=== PATIENT | female | born 2005 | race African-American/Black ===

== ENCOUNTER 2024-09-14 22:01 | Inpatient (IN) | payer OTHER, MEDICAID ==
[~2024-09-14] VITALS: Ht 162.6 cm; Wt 62.1 kg
[~2024-09-14 22:01] MED LIST: DIPH25CA39; PRELONE
--- NOTE | 2024-09-14 22:28 | ED.PDOC ---
History of Present Illness HPI Comments 19-year-old female came to ER with mother due to generalized weakness. Per mother, patient was apparently well until yesterday, when she noted the patient to be pale, weak looking, diaphoretic, with episodes of confusion and incoherence. Patient was noted to be saturating at 80s at room air and was tachycardic at 140s. Persistence of symptoms throughout the day, now associated with dizziness, shortness of breath, lethargy, nausea, and left lower chest pains prompted patient to come to the ER. Blood pressure upon arrival was 91/55 mm Hg Chief Complaint: General Weakness Time Seen by MD: 22:27 Primary Care Provider: NONE Reviewed Notes: Nurses Notes Allergies: Coded Allergies: NO KNOWN ALLERGIES (Unverified , 06/09/13) Home Meds Reported Medications Diphenhydramine Hcl (Benadryl) 25 Mg Cap 06/09/13 [Prelone] No Conflict Check 06/09/13 Information Source: Patient, Relative (Mother) Mode of Arrival: Wheelchair Severity: Moderate Timing: Hours Duration: Since onset Prehospital treatment: None Past Medical History PAST MEDICAL HISTORY: Denies Surgical History: Denies all surgeries BLOCK CUTTER History: Denies all BLOCK CUTTER Hx Family History Family History: Reviewed,noncontributory to illness Social History Smoker: Non-Smoker Alcohol: Denies ETOH Use Drugs: Denies Drug Use Lives In: Home Constitutional: reports: diaphoresis, fatigue, malaise, weakness; denies: chills, fever, sweats, others EENTM: denies: blurred vision, double vision, ear bleeding, ear discharge, ear drainage, ear pain, ear ringing, eye pain, eye redness, hearing loss, mouth pain, mouth swelling, nasal discharge, nose bleeding, nose congestion, nose pain, photophobia, tearing, throat pain, throat swelling, voice changes, others Respiratory: reports: SOB at rest, shortness of breath; denies: cough, hemoptysis, orthopnea, SOB with excertion, stridor, wheezing, others Cardiovascular: reports: chest pain, palpitations; denies: dizzy spells, diaphoresis, Dyspnea on exertion, edema, irregular heart beat, left arm pain, lightheadedness, PND, syncope, others Gastrointestinal: reports: nausea; denies: abdomen distended, abdominal pain, blood streaked bowels, constipated, diarrhea, dysphagia, difficulty swallowing, hematemesis, melena, poor appetite, poor fluid intake, rectal bleeding, rectal pain, vomiting, others Genitourinary: denies: abnormal vagina bleeding, burning, dyspareunia, dysuria, flank pain, frequency, hematuria, incontinence, pain, , vagina discharge, urgency, others Neurological: reports: dizziness; denies: fainting, headache, left sided numbness, left sided weakness, numbness, paresthesia, pre-existing deficit, right sided numbness, right sided weakness, seizure, speech problems, tingling, tremors, weakness, others Musculoskeletal: denies: back pain, gout, joint pain, joint swelling, muscle pain, muscle stiffness, neck pain, others Integumetry: denies: bruises, change in color, change in hair/nails, dryness, laceration, lesions, lumps, rash, wounds, others Allergic/Immunocompromised: denies: Difficulty Healing, Frequent Infections, Hives, Itching, others Hematologic/Lymphatic: denies: anemia, blood clots, easy bleeding, easy bruising, swollen glands, others Endocrine: denies: excessive hunger, excessive sweating, excessive thirst, excessive urination, flushing, intolerance to cold, intolerance to heat, unexplained weight gain, unexplained weight loss, others Psychiatric: denies: anxiety, bipolar disorder, depression, hopeless, panic disorder, schizophrenia, sleepless, suicidal, others Physical Exam General Appearance: No Apparent Distress, Normal HEENT: Normal ENT Inspection, Pharynx Normal, TMs Normal Neck: Full Range of Motion, Non-Tender, Normal, Normal Inspection Respiratory: Chest Non-Tender, Lungs Clear, No Accessory Muscle Use, No Respiratory Distress, Normal Breath Sounds Cardiovascular: No Edema, No JVD, No Murmur, No Gallop, Normal Peripheral Pulses, Regular Rate/Rhythm Breast Exam: Deferred Gastrointestinal: No Organomegaly, Non Tender, No Pulsatile Mass, Normal Bowel Sounds, Soft Genitalia: Deferred Pelvic: Deferred Rectal: Deferred Extremities: No calf tenderness, Normal capillary refill, Normal inspection, Normal range of motion, Non-tender, No pedal edema Musculoskeletal : Apperance: Normal Neurologic: Alert, unit [employer] II-XII nml as Tested, No Motor Deficits, Normal Affect, Normal Mood, No Sensory Deficits Cerebellar Function: Normal Reflexes: Normal Skin: Dry, Normal Color, Warm Lymphatic: No Adenopathy Was a procedure done? Was a procedure done?: No Differential Dx Considerations may include: Anemia, electrolyte imbalance, dehydration, pneumonia, sepsis, urinary tract infection X-Ray, Labs, Meds, VS Vital Signs Date Time Temp Pulse Resp B/P (MAP) Pulse Ox O2 Delivery O2 Flow Rate FiO2 09/14/24 22:22 136 09/14/24 22:05 98.8 147 19 91/55 (67) 98 Lab Test 09/14/24 22:27 09/14/24 22:17 09/14/24 22:09 Range/Units White Blood Count 6.1 4.4-10.8 10^3/uL Red Blood Count 4.61 4.0-5.20 10^6/uL Hemoglobin 10.8 L 12.2-16.2 g/dL Hematocrit 34.3 L 36.0-46.0 % Mean Corpuscular Volume 74.3 L 80.0-100.0 fL Mean Corpuscular Hemoglobin 23.5 L 28.0-32.0 pg Mean Corpuscular Hemoglobin Concent 31.6 L 32.0-36.0 g/dL Red Cell Distribution Width 15.4 H 11.8-14.3 % Platelet Count 311 140-450 10^3/uL Mean Platelet Volume 6.8 L 6.9-10.8 fL Neutrophils (%) (Auto) 88.6 H 37.0-80.0 % Lymphocytes (%) (Auto) 4.8 L 10.0-50.0 % Monocytes (%) (Auto) 6.5 0.0-12.0 % Eosinophils (%) (Auto) 0.0 0.0-7.0 % Basophils (%) (Auto) 0.1 0.0-2.0 % Neutrophils # (Auto) 5.4 1.6-8.6 10 ^3/uL Lymphocytes # (Auto) 0.3 L 0.4-5.4 10 ^3/uL Monocytes # (Auto) 0.4 0-1.3 10 ^3/uL Eosinophils # (Auto) 0 0-0.8 10 ^3/uL Basophils # (Auto) 0 0-0.2 10 ^3/uL Nucleated Red Blood Cells 0.0 % D-Dimer, Quantitative 0.66 H 0.0-0.49 mg/L FEU Sodium Level 135 L 136-145 mmol/L Potassium Level 3.9 3.5-5.1 mmol/L Chloride Level 103 98-107 mmol/L Carbon Dioxide Level 21 20-31 mmol/L Anion Gap 11 5-15 Blood Urea Nitrogen 11 9-23 mg/dL Creatinine 0.86 0.550-1.02 mg/dL Glomerular Filtration Rate Calc 99 >90 mL/min BUN/Creatinine Ratio 12.8 10.0-20.0 Serum Glucose 158 H 74-106 mg/dL Calcium Level 9.2 8.7-10.4 mg/dL Total Bilirubin 0.6 0.2-1.0 mg/dL Aspartate Amino Transferase (AST) 11 L 13-40 U/L Alanine Aminotransferase (ALT) 16 7-40 U/L Alkaline Phosphatase 42 L 46-116 U/L Troponin I High Sensitivity 7 </=34 ng/L Total Protein 5.8 5.7-8.2 g/dL Albumin 3.7 3.2-4.8 g/dL Beta HCG, Quantitative 0.4 L 1.5-4.2 mIU/mL Lactic Acid Level 5.5 *H 0.4-2.0 mmol/L POC Glucose 124 H 70-106 mg/dl Current Medications Medications (Trade) Dose Ordered Sig/Yayo Route Start Time Stop Time Status Last Admin Sodium Chloride 1,000 ml @ 1,000 mls/hr Q1H ONCE IV 09/14/24 22:30 09/14/24 23:29 09/14/24 23:11 Ceftriaxone Sodium 50 ml @ 100 mls/hr ONCE ONCE IV 09/14/24 22:30 09/14/24 22:59 DC 09/14/24 23:16 Time of 1ST Reevaluation: 22:23 Reevaluation 1ST: Unchanged Time of 2ND Reevaluation: 23:17 Reevaluation 2ND: Unchanged Patient Education/Counseling: Diagnosis, Treatment Family Education/Counseling: Diagnosis, Treatment Sepsis Sepsis Reasesment Focused Exam Sepsis focused exam: focus exam completed, time: (2314) Departure 1 Departure Time of Disposition: 23:18 Impression: Primary Impression: Pneumonia Disposition: 09 ADMITTED INPATIENT Admit to: ICU Condition: Guarded Critical Care Note Critical Care Time?: Yes (35 min-critical care time only) Critical care comment: Total critical care time: Approximately 36 minutes Due to a high probability of clinically significant, life threatening deterioration, the patient required my highest level of preparedness to intervene emergently and I personally spent this critical care time directly and personally managing the patient. This critical care time included obtaining a history; examining the patient; pulse oximetry; ordering and review of studies; arranging urgent treatment with development of a management plan; evaluation of patient's response to treatment; frequent reassessment; and, discussions with other providers. This critical care time was performed to assess and manage the high probability of imminent, life-threatening deterioration that could result in multi-organ failure. It was exclusive of separately billable procedures and treating other patients. Stability Stability form required: No Heart Score Heart Score: Heart Score Response (Comments) Value History N/A 0 EKG N/A 0 Age N/A 0 Risk Factors N/A 0 Troponin N/A 0 Total 0 I personally scribed for DELMER JEAN MD ([email or web address]) on 09/14/24 at 22:28. Electronically submitted by Patric Contreras ([email or web address]). I personally scribed for DELMER JEAN MD ([email or web address]) on 09/14/24 at 23:21. Electronically submitted by Patric Contreras ([email or web address]). DELMER JEAN MD Sep 14, 2024 22:28
[2024-09-14 22:39] LABS: Basophils # (auto) 0 10 ^3/uL (0-0.2); Basophils % (auto) 0.1 % (0.0-2.0); Eosinophils # (auto) 0 10 ^3/uL (0-0.8); Hematocrit 34.3 % (36.0-46.0); Hemoglobin 10.8 g/dL (12.2-16.2); Lymphocytes # (auto) 0.3 10 ^3/uL (0.4-5.4); Lymphocytes % (auto) 4.8 % (10.0-50.0); Mean Corpuscular Hemoglobin 23.5 pg (28.0-32.0); Mean Corpuscular Hgb Conc. 31.6 g/dL (32.0-36.0); Mean Corpuscular Volume 74.3 fL (80.0-100.0); Monocytes # (auto) 0.4 10 ^3/uL (0-1.3); Monocytes % (auto) 6.5 % (0.0-12.0); Neutrophils # (auto) 5.4 10 ^3/uL (1.6-8.6); Neutrophils % (auto) 88.6 % (37.0-80.0); Platelet Count (auto) 311 10^3/uL (140-450); Red Blood Cells 4.61 10^6/uL (4.0-5.20); Red Cell Distribution Width 15.4 % (11.8-14.3); White Blood Cell 6.1 10^3/uL (4.4-10.8)
[2024-09-14 22:45] VITALS: PULSE 127; RESP 39; O2SAT 92
[2024-09-14 22:59] LABS: Alanine Aminotransferase 16 U/L (7-40); Albumin 3.7 g/dL (3.2-4.8); Anion Gap 11 (5-15); BUN/Creatinine Ratio 12.8 (10.0-20.0); Blood Urea Nitrogen 11 mg/dL (9-23); Calcium 9.2 mg/dL (8.7-10.4); Carbon Dioxide 21 mmol/L (20-31); Chloride 103 mmol/L (98-107); Potassium 3.9 mmol/L (3.5-5.1)
[2024-09-14 23:00] LABS: Alkaline Phosphatase 42 U/L (46-116); Aspartate Aminotransferase 11 U/L (13-40); Bilirubin, Total 0.6 mg/dL (0.2-1.0); Glucose 158 mg/dL (74-106); Sodium 135 mmol/L (136-145); Total Protein 5.8 g/dL (5.7-8.2)
[2024-09-14 23:03] LABS: Lactic Acid w/Reflex 5.5 mmol/L (0.4-2.0)
[2024-09-14] MEDS: SODIUM CHLORIDE 0.9% 1,000 ML IV ONE (23:11)
--- NOTE | 2024-09-14 23:14 | DVH ---
CHEST RADIOGRAPH Indication: chest pain / SOB Technique: Single frontal view of the chest was obtained COMPARISON: None FINDINGS: Lines and Tubes: None Lungs: Multifocal pneumonia throughout both lungs, most prominent in the left lower Pleura: No effusion. No pneumothorax. Cardiomediastinal contours: Unremarkable Bones: Unremarkable IMPRESSION: 1. Multifocal pneumonia throughout both lungs, most prominent in the left lower lobe
[2024-09-14] MEDS: cefTRIAXone 1GM/50ML D5W 50 ML IV ONE (23:16)
[2024-09-14] MEDS: PIPERACILLIN-TAZOB 3.375GM 100 ML IV ONE (23:55)
--- NOTE | 2024-09-14 23:55 | DVH ---
CT ANGIOGRAM CHEST WITH CONTRAST FOR PULMONARY EMBOLUS CLINICAL HISTORY: chest pain , r/o PE TECHNIQUE: Helical axial scans of the chest during dynamic intravenous contrast injection. Pulmonary embolism protocol. Multiplanar reformats. Postprocessing MIP images. One or more of the following rad iation dose reduction techniques were used for this examination: automated exposure control, adjustme nt of the mA and/or kV according to patient size, use of iterative reconstruction technique. COMPARISON: Chest x-ray obtained earlier the same day. FINDINGS: Pulmonary arteries: Adequate enhancement of the pulmonary arterial system to the lobar levels. Respi ratory motion artifact somewhat limits evaluation more distally in the lower lobes. As visualized, no discrete central or lobar branch pulmonary emboli are identified. Mediastinum: Heart is normal in size. No pericardial effusion. No mediastinal adenopathy. Lung parenchyma: Confluent, multifocal airspace opacities are noted throughout both lungs. Pleura: No sizable pleural effusion or pneumothorax. Chest wall and axillae: No significant axillary adenopathy. Upper abdomen: No acute findings as visualized. IMPRESSION: No definite evidence of central or lobar pulmonary embolism. Multifocal airspace opacities in both lungs are most likely of infectious etiology. Recommend follow -up to resolution to exclude any underlying lesions. HS:Y
[2024-09-15] VITALS (9 sets, daily range): BP systolic 92–107; BP diastolic 46–58; PULSE 102–132; RESP 17–68; O2SAT 96–100
[2024-09-15] MEDS: HYDROcodone-ACET 5/325MG TAB PO ONE (00:19)
[2024-09-15] MEDS: IOHEXOL 350 MG/ML 100ML IJ ONE (00:23)
[2024-09-15] MEDS: SODIUM CHLORIDE 0.9% 1,000 ML IV ONE ×2 (00:23→03:32)
[2024-09-15] MEDS: ALBUTEROL SULF 2.5 MG/0.5ML(0.5%) NEB SOLN NEB ONE (01:26)
[2024-09-15] MEDS: NOREPINEPHRINE 8 MG/250ML KIT 250 ML IV SCH ×2 (03:30→18:29)
[2024-09-15] MEDS ORDERED: MORPHINE SULFATE INJ 2 MG/ml SYRG IV PRN (04:00)
[2024-09-15] MEDS ORDERED: NITROGLYCERIN 0.4 MG SL TAB SL PRN (04:00)
[2024-09-15] MEDS: SODIUM CHLORIDE 0.9% 1,000 ML IV SCH ×2 (04:00→13:30)
[2024-09-15] MEDS ORDERED: DOCUSATE SOD 100 MG CAP PO PRN (04:00)
[2024-09-15] MEDS ORDERED: ALBUTEROL SULF 2.5 MG/0.5ML(0.5%) NEB SOLN NEB PRN (04:00)
[2024-09-15] MEDS: methylPREDNISolone SOD SUCC 125 MG/2 ML VL IV ONE (04:19)
--- NOTE | 2024-09-15 04:24 | DVHHP2 ---
History of Present Illness Reason for Visit: Acute respiratory distress with hypoxia History of Present Illness The patient is a 19-year-old female who denies past medical history presented to [facility] ED with complaint of generalized weakness. Patient reports symptoms progressively get worse with shortness of breaths, SOB at rest, diaphoretic, episodes of confusion, hypoxia saturating at 80 % on room air, tachycardia, getting worse that prompted this visit. Patient was seen and evaluated in the ED, laboratory data shows WBC 6.1, hemoglobin 10.8, hematocrit 34.3, platelets 311, sodium 135, potassium 3.9, BUN 11, creatinine 0.86, GFR 99, glucose 158, lactic acid 6.9, D-dimer 0.66, troponin 8, blood pressure 91/55, heart rate 136, temperature 98.8 F, O2 saturation 92% on oxygen. Chest x-ray revealing multifocal pneumonia throughout the lungs, most prominent in the left lower lobe. Patient was started on IV antibiotic regimen Zosyn, please see medication orders section in the computer. On my assessment, patient denies chest pain, no headache, no dizziness, currently on oxygen, no abdominal pain, no nausea, no vomiting, no fever, no chills. Patient was admitted for further evaluation and medical management. Past Medical History Denies past medical history Past Surgical History Denies all surgeries Family History Reviewed, noncontributory to the management of this case. Past Social History The patient lives at home, denies smoking, alcohol or illicit drugs abuse. Review of Systems Constitutional: Yes: Weakness, Malaise, Other (Fatigue); No: Fever, Chills, Sweats Eyes: No: Pain, Vision change, Conjunctivae inflammation, Eyelid inflammation, Other, Redness ENT: No: Ear pain, Ear discharge, Nose pain, Nose discharge, Nose congestion, Mouth pain, Mouth swelling, Throat pain, Throat swelling, Other Respiratory: Shortness of breath, SOB with excertion, Other (SOB at rest); No: Cough, Dry, Wheezing, Hemoptysis, Pleuritic Pain, Sputum, Wheezing Cardiovascular: No: Chest Pain, Palpitations, Orthopnea, Paroxysmal Noc. Dyspnea, Edema, Lt Headedness, Other Gastrointestinal: No: Nausea, Vomiting, Abdominal Pain, Diarrhea, Constipation, Melena, Hematochezia, Other Genitourinary: No Dysuria, No Frequency, No Incontinence, No Hematuria, No R etention, No Other Musculoskeletal: No: other, neck pain, shoulder pain, arm pain, back pain, hand pain, leg pain, foot pain Skin: No: Rash, Lesions, Jaundice, Bruising, Other Neurological: No: Weakness, Numbness, Incoordination, Change in speech, Confusion, Seizures, Other Allergies: Coded Allergies: NO KNOWN ALLERGIES (Unverified , 06/09/13) Medications Current Medications Medications Dose Ordered Sig/Yayo Route Start Time Stop Time Status Last Admin Dose Admin Norepinephrine Bitartrate 250 ml @ 3.75 mls/hr Q24H IV 09/15/24 03:30 09/15/24 03:30 3.75 MLS/HR Exam Vital Signs Vital Signs Date Time Temp Pulse Resp B/P (MAP) Pulse Ox O2 Delivery O2 Flow Rate FiO2 09/15/24 03:45 94/51 09/15/24 01:26 20 92 Nasal Cannula* 4 36 09/14/24 22:45 127 09/14/24 22:05 98.8 General Appearance: Alert, Oriented X3, Cooperative, No acute distress HEENT: Atraumatic, PERRLA, EOMI, Mucous membr. moist/pink Respiratory: Normal air movement, Other (Diminished breath sounds) Cardiovascular: Regular rate, Normal S1, Normal S2, No murmurs Abdominal: Normal bowel sounds, Soft, No tenderness, No hepatospenomegaly, No masses Extremities: No clubbing, No cyanosis, No edema, Normal pulses, No tenderness/swelling Skin: No rashes, No breakdown, No significant lesion Neuro: Normal speech, Normal tone, Sensation intact, Cranial nerves 3-12 NL, Reflexes 2+, Other (Generalized weakness) Psych/Mental Status: Mental status NL, Mood NL Labs/Xrays Labs Test 09/15/24 03:30 09/15/24 01:18 09/14/24 23:25 09/14/24 22:27 Range/Units Lactic Acid Level 6.9 *H 0.4-2.0 mmol/L Troponin I High Sensitivity 8 </=34 ng/L White Blood Count 6.1 4.4-10.8 10^3/uL Red Blood Count 4.61 4.0-5.20 10^6/uL Hemoglobin 10.8 L 12.2-16.2 g/dL Hematocrit 34.3 L 36.0-46.0 % Mean Corpuscular Volume 74.3 L 80.0-100.0 fL Mean Corpuscular Hemoglobin 23.5 L 28.0-32.0 pg Mean Corpuscular Hemoglobin Concent 31.6 L 32.0-36.0 g/dL Red Cell Distribution Width 15.4 H 11.8-14.3 % Platelet Count 311 140-450 10^3/uL Mean Platelet Volume 6.8 L 6.9-10.8 fL Neutrophils (%) (Auto) 88.6 H 37.0-80.0 % Lymphocytes (%) (Auto) 4.8 L 10.0-50.0 % Monocytes (%) (Auto) 6.5 0.0-12.0 % Eosinophils (%) (Auto) 0.0 0.0-7.0 % Basophils (%) (Auto) 0.1 0.0-2.0 % Neutrophils # (Auto) 5.4 1.6-8.6 10 ^3/uL Lymphocytes # (Auto) 0.3 L 0.4-5.4 10 ^3/uL Monocytes # (Auto) 0.4 0-1.3 10 ^3/uL Eosinophils # (Auto) 0 0-0.8 10 ^3/uL Basophils # (Auto) 0 0-0.2 10 ^3/uL Nucleated Red Blood Cells 0.0 % D-Dimer, Quantitative 0.66 H 0.0-0.49 mg/L FEU Sodium Level 135 L 136-145 mmol/L Potassium Level 3.9 3.5-5.1 mmol/L Chloride Level 103 98-107 mmol/L Carbon Dioxide Level 21 20-31 mmol/L Anion Gap 11 5-15 Blood Urea Nitrogen 11 9-23 mg/dL Creatinine 0.86 0.550-1.02 mg/dL Glomerular Filtration Rate Calc 99 >90 mL/min BUN/Creatinine Ratio 12.8 10.0-20.0 Serum Glucose 158 H 74-106 mg/dL Calcium Level 9.2 8.7-10.4 mg/dL Total Bilirubin 0.6 0.2-1.0 mg/dL Aspartate Amino Transferase (AST) 11 L 13-40 U/L Alanine Aminotransferase (ALT) 16 7-40 U/L Alkaline Phosphatase 42 L 46-116 U/L Total Protein 5.8 5.7-8.2 g/dL Albumin 3.7 3.2-4.8 g/dL Beta HCG, Quantitative 0.4 L 1.5-4.2 mIU/mL Test 09/14/24 22:09 Range/Units POC Glucose 124 H 70-106 mg/dl PATIENT: OSCAR GOOD ACCT: [id number] UNIT: [id number] : 2005 LOC: ER ROOM / BED: / AGE / SEX: 19 / F ADM STATUS: REG ER SERVICE [id number] ORDERING PHYSICIAN: DELMER JEAN MD PROCEDURE(s): CTACH - CT ANGIO CHEST CONTRAST REASON: chest pain , r/o PE ORDER NUMBER(s): [id number], ACCESSION NUMBER(s): [id number] CT ANGIOGRAM CHEST WITH CONTRAST FOR PULMONARY EMBOLUS CLINICAL HISTORY: chest pain , r/o PE TECHNIQUE: Helical axial scans of the chest during dynamic intravenous contrast injection. Pulmonary embolism protocol. Multiplanar reformats. Postprocessing MIP images. One or more of the following radiation dose reduction techniques were used for this examination: automated exposure control, adjustment of the mA and/or kV according to patient size, use of iterative reconstruction technique. COMPARISON: Chest x-ray obtained earlier the same day. FINDINGS: Pulmonary arteries: Adequate enhancement of the pulmonary arterial system to the lobar levels. Respiratory motion artifact somewhat limits evaluation more distally in the lower lobes. As visualized, no discrete central or lobar branch pulmonary emboli are identified. Mediastinum: Heart is normal in size. No pericardial effusion. No mediastinal adenopathy. Lung parenchyma: Confluent, multifocal airspace opacities are noted throughout both lungs. Pleura: No sizable pleural effusion or pneumothorax. Chest wall and axillae: No significant axillary adenopathy. Upper abdomen: No acute findings as visualized. IMPRESSION: No definite evidence of central or lobar pulmonary embolism. Multifocal airspace opacities in both lungs are most likely of infectious etiology. Recommend follow-up to resolution to exclude any underlying lesions. ORDERING PHYSICIAN: DELMER JEAN MD PROCEDURE(s): CXRP - CHEST PORTABLE REASON: chest pain / SOB ORDER NUMBER(s): [id number], ACCESSION NUMBER(s): [id number] CHEST RADIOGRAPH Indication: chest pain / SOB Technique: Single frontal view of the chest was obtained COMPARISON: None FINDINGS: Lines and Tubes: None Lungs: Multifocal pneumonia throughout both lungs, most prominent in the left lower Pleura: No effusion. No pneumothorax. Cardiomediastinal contours: Unremarkable Bones: Unremarkable IMPRESSION: 1. Multifocal pneumonia throughout both lungs, most prominent in the left lower lobe Assessment/Plan Assessment/Plan Pneumonia, unspecified organisms Generalized weakness Hyperglycemia Elevated D-dimer Sepsis, unspecified organism Acute respiratory failure with hypoxia Plan 1. Admit to intensive care unit 2. Breathing treatment 3. Pain control management 4. IV antibiotic management 5. Management of fluids and electrolytes 6. Consultation for pulmonology 7. Diagnostic test chest x-ray 8. DVT prophylaxis-on SCDs 9. Repeat labs CBC, CMP in a.m. 10. Continue with current medical management 11. Treatment plan discussed with patient and RN. Patient verbalized understanding. Plan discussed with: Patient, Other (Mother/RN) My Orders Orders - SATINDER MONACO DNP Procedure Category Date Status Time *Consult CONS 09/15/24 Verified / 03:52 Complete Blood Count LAB 09/15/24 Verified 03:52 Comprehensive LAB 09/15/24 Verified Metabolic Panel 03:52 Zosyn Extended PHA 09/15/24 Verified Infusion 06:00 Azithromycin 500mg/ PHA 09/15/24 Verified 250ml (Zithromax 50 10:00 Albuterol Medneb PHA 09/15/24 Verified (Ventolin Medneb) 04:00 Ipratropium Medneb PHA 09/15/24 Verified (Atrovent Medneb) 04:00 Admit ADMIT 09/15/24 Verified 03:52 Allergies DIANA 09/15/24 Verified 03:52 Code Status CODE 09/15/24 Verified 03:52 0.9% Ns 1000 Ml PHA 09/15/24 Verified 04:00 Oxygen Per Hour RT 09/15/24 Verified 03:52 Hydrocodone-Acet PHA 09/15/24 Verified 5/325mg Tab ([place] 04:00 Ondansetron Hcl PHA 09/15/24 Verified (Zofran) 04:00 Docusate Sodium PHA 09/15/24 Verified Capsule (Colace 04:00 Fall Risk Precautions DIANA 09/15/[address] 03:52 Complete Blood Count LAB 09/16/24 Verified 04:00 Comprehensive LAB 09/16/24 Verified Metabolic Panel 04:00 Cardiac DIET 09/15/24 Verified Diet-2gna,Lofat,Lochol Breakfast Condition: Serious [facility] 09/15/24 Verified 03:52 Acetaminophen Tablet [facility] 09/15/24 Verified (Tylenol Tablet) 04:00 Sequential [facility] 09/15/24 Verified Compression Device Nitroglycerin [facility] 09/15/24 Verified Sublingual (Ntrostat 04:00 Morphine Sulfate [facility] 09/15/24 Verified Injection 04:00 Stat Ekg For Chest [facility] 09/15/24 Verified Pain 03:52 Notify Md Of Changes [facility] 09/15/24 Verified From Base 03:52 Operations Manager/Coordinator For [facility] 09/15/24 Verified 24 Hours 03:52 Emergency Dysrhythmia [facility] 09/15/24 Verified Protocol 03:52 Rhythm Strips Once [facility] 09/15/24 Verified Every Shift 03:52 Oxygen By Nasal RT 09/15/24 Verified Cannula 03:52 Methylprednisolone PHA 09/15/24 Verified Sod Succ (Solu Medrol 04:00 Methylprednisolone PHA 09/15/24 Verified Sod Succ (Solu Medrol 06:00 Famotidine Injection [facility] 09/15/24 Verified (Pepcid Injection) 10:00 Problem List: (1) Pneumonia, unspecified organism (2) Sepsis, unspecified organism (3) Elevated d-dimer (4) Hyperglycemia (5) Generalized weakness (6) Acute respiratory failure with hypoxia Date of Service: Sep 15, 2024 Billing Provider: SATINDER MONACO DNP Common Visit Codes: [id number] INP/OBS CARE (HIGH) SATINDER MONACO DNP Sep 15, 2024 04:24
[2024-09-15 04:52] LABS: COVID19 ANTIGEN SOFIA FIA NEGATIVE (NEGATIVE)
[2024-09-15 04:53] LABS: Rapid Influenza A Negative (Negative); Rapid Influenza B Negative (Negative)
[2024-09-15 05:27] LABS: Alanine Aminotransferase 11 U/L (7-40); Anion Gap 12 (5-15); Aspartate Aminotransferase 14 U/L (13-40); BUN/Creatinine Ratio 10.8 (10.0-20.0); Glucose 105 mg/dL (74-106); Sodium 136 mmol/L (136-145)
[2024-09-15 05:28] LABS: Bilirubin, Total 0.4 mg/dL (0.2-1.0)
[2024-09-15 05:50] LABS: Albumin 3.1 g/dL (3.2-4.8); Alkaline Phosphatase 36 U/L (46-116); Blood Urea Nitrogen 7 mg/dL (9-23); Calcium 8.2 mg/dL (8.7-10.4); Carbon Dioxide 16 mmol/L (20-31); Chloride 108 mmol/L (98-107); Potassium 3.3 mmol/L (3.5-5.1); Total Protein 5.2 g/dL (5.7-8.2)
[2024-09-15 06:07] LABS: Base Excess -6.1 mmol/L (-2.0-3.0)
[2024-09-15] MEDS: PIPERACILLIN-TAZOB 3.375GM 100 ML IV SCH (06:26)
[2024-09-15 06:52] LABS: Basophils # (auto) 0 10 ^3/uL (0-0.2); Eosinophils # (auto) 0 10 ^3/uL (0-0.8); Eosinophils % (auto) 0.1 % (0.0-7.0); Lymphocytes # (auto) 0.1 10 ^3/uL (0.4-5.4); Mean Corpuscular Hgb Conc. 31.7 g/dL (32.0-36.0); Monocytes # (auto) 0.2 10 ^3/uL (0-1.3); Neutrophils # (auto) 2.8 10 ^3/uL (1.6-8.6); White Blood Cell 3.1 10^3/uL (4.4-10.8)
[2024-09-15 07:16] LABS: Basophils % (auto) 0.2 % (0.0-2.0); Hematocrit 34.4 % (36.0-46.0); Hemoglobin 10.9 g/dL (12.2-16.2); Lymphocytes % (auto) 4.1 % (10.0-50.0); Mean Corpuscular Hemoglobin 24.2 pg (28.0-32.0); Mean Corpuscular Volume 76.4 fL (80.0-100.0); Monocytes % (auto) 5.4 % (0.0-12.0); Neutrophils % (auto) 90.2 % (37.0-80.0); Platelet Count (auto) 269 10^3/uL (140-450); Red Blood Cells 4.51 10^6/uL (4.0-5.20); Red Cell Distribution Width 15.6 % (11.8-14.3)
--- NOTE | 2024-09-15 07:42 | ECG ---
[facility] Test Date: 2024-09-14 Test Time: 22:22:02 Pat Name: OSCAR GOOD Department: ER Room: 0240T Gender: F [employer] Supervisor: TOÑO : 2005 Requested By: DELMER JEAN Order Number: [id number] Reading MD: Joseph Ocampo Measurements Intervals [place] Rate: 136 P: 69 MN: 121 QRS: 63 QRSD: 78 T: 11 QT: 274 QTc: 413 Interpretive Statements Sinus tachycardia Electronically Signed On 09-17-2024 13:05:33 PST by Joseph Ocampo Please click the below link to view image of tracing.
[2024-09-15] MEDS: FAMOTIDINE (10MG/ML) 2ML VL IV SCH (09:53)
[2024-09-15] MEDS: AZITHROMYCIN 500MG/ 250ML 250 ML IV SCH (09:54)
[2024-09-15] MEDS: POTASSIUM EFFERVESENT TAB 25 MEQ PO ONE (10:39)
[2024-09-15] MEDS ORDERED: VANCOMYCIN PER PHARMACY 0 MG IV SCH (10:45)
[2024-09-15 11:47] LABS: Lactic Acid w/Reflex 5.1 mmol/L (0.4-2.0)
[2024-09-15 12:10] LABS: Urine Bacteria FEW /hpf (None Seen); Urine Blood Negative /uL (Negative); Urine Clarity Clear (Clear); Urine Color Colorless (Yellow); Urine Protein, UAD Negative (Negative); Urine Specific Gravity 1.007 (1.001-1.035); Urine Urobilinogen Normal (Negative); Urine WBC 1 /hpf (0 - 5)
[2024-09-15] MEDS: cefTRIAXone 1GM/50ML D5W 50 ML IV ONE (12:21)
[2024-09-15] MEDS: VANCOMYCIN 1.5GM/300ML 300 ML IV SCH (12:57)
--- NOTE | 2024-09-15 13:29 | DVHPN2 ---
Subjective Feels better Reviewed: Care Plan, H&P, Labs, Medications, Previous Orders, Radiology Changes from previous H/P or p: No Changes Respiratory: Shortness of breath, Other Objective Vitals Vital Signs Date Time Temp Pulse Resp B/P (MAP) Pulse Ox O2 Delivery O2 Flow Rate FiO2 09/15/24 12:00 125 09/15/24 11:15 32 104/54 (71) 98 09/15/24 07:25 Hi-Flow NC 12 80 80 09/15/24 07:25 97.7 97.7 Intake/Output Intake and Output 09/15/24 07:00 Intake Total 2361.25 ml Balance 2361.25 ml Intake IV Total 2361.25 ml General Appearance: Alert, Oriented X3, Cooperative, No acute distress HEENT: Atraumatic Lungs: Other (Few crackles bilateral lungs with moderate to good air entry) Cardiovascular: Other (Borderline tachycardia at this time) Abdomen: Normal bowel sounds, Soft, No tenderness Extremities: No edema Medications Current Medications Medications Dose Ordered Sig/Yayo Route Start Time Stop Time Status Last Admin Dose Admin Norepinephrine Bitartrate 250 ml @ 3.75 mls/hr Q24H IV 09/15/24 03:30 09/15/24 03:30 3.75 MLS/HR Azithromycin 250 ml @ 125 mls/hr DAILY IV 09/15/24 10:00 09/15/24 09:54 125 MLS/HR Albuterol 2.5 mg Q4HPRN PRN NEB 09/15/24 04:00 Ipratropium [place] 0.5 mg Q4HPRN PRN NEB 09/15/24 04:00 Sodium Chloride 1,000 ml @ 60 mls/hr [id number] IV 09/15/24 04:00 09/15/24 04:00 60 MLS/HR Acetaminophen/ Hydrocodone Bitart 1 tab Q4HP PRN PO 09/15/24 04:00 Ondansetron HCl 4 mg Q4HP PRN IV 09/15/24 04:00 Docusate Sodium 100 mg BIDPRN PRN PO 09/15/24 04:00 Acetaminophen 650 mg Q6HP PRN PO 09/15/24 04:00 Nitroglycerin 0.4 mg Q5MINP PRN SL 09/15/24 04:00 Morphine Sulfate 2 mg Q30M PRN IV 09/15/24 04:00 Famotidine 20 mg Q12HR IV 09/15/24 10:00 09/15/24 09:53 20 MG Ceftriaxone Sodium 50 ml @ 100 mls/hr DAILY@09 IV 09/16/24 09:00 Vancomycin HCl 0 ml @ 0 mls/hr UD IV 09/15/24 10:45 Vancomycin HCl 300 ml @ 200 mls/hr Q12H IV 09/15/24 12:00 09/15/24 12:57 200 MLS/HR Laboratory Results Laboratory Tests 09/15/24 05:00 09/15/24 06:33 Chemistry Test 09/14/24 22:27 09/15/24 05:00 Albumin 3.7 g/dL (3.2-4.8) 3.1 g/dL (3.2-4.8) L Calcium Level 9.2 mg/dL (8.7-10.4) 8.2 mg/dL (8.7-10.4) L Total Protein 5.8 g/dL (5.7-8.2) 5.2 g/dL (5.7-8.2) L Coagulation Test 09/14/24 22:27 D-Dimer, Quantitative 0.66 mg/L FEU (0.0-0.49) H LFT Test 09/14/24 22:27 09/15/24 05:00 Alanine Aminotransferase (ALT) 16 U/L (7-40) 11 U/L (7-40) Alkaline Phosphatase 42 U/L (46-116) L 36 U/L (46-116) L Aspartate Amino Transferase (AST) 11 U/L (13-40) L 14 U/L (13-40) Total Bilirubin 0.6 mg/dL (0.2-1.0) 0.4 mg/dL (0.2-1.0) HgA1c, TSH Test 09/15/24 05:00 Hemoglobin A1c 5.5 % A1C (<5.7) Urinalysis Test 09/15/24 11:12 Urine Color Colorless (Yellow) Urine Clarity Clear (Clear) Urine pH 5.0 (5.0-9.0) Urine Specific [place] 1.007 (1.001-1.035) Urine Protein Negative (Negative) Urine Ketones Negative (Negative) Urine Blood Negative /uL (Negative) Urine Nitrite Negative (Negative) Urine Bilirubin Negative (Negative) Urine Urobilinogen Normal mg/dL (Negative) Urine Leukocyte Esterase Negative /uL (Negative) Urine RBC 1 /hpf (0 - 4) Urine WBC 1 /hpf (0 - 5) Urine Squamous Epithelial Cells Few /hpf (<5) Urine Bacteria Few /hpf (None Seen) H Urine Glucose 3+ mg/dL (Normal) H Blood Gas Results Test 09/15/24 03:50 Arterial Blood pH 7.411 (7.350-7.450) FiO2 % 100.0 Assessment/Plan Assessment/Plan Acute respiratory failure with bilateral multifocal pneumonia with likely sepsis Leukopenia likely secondary to above Hypokalemia History of vitamin-D deficiency Anemia/chronic from menstruation with low MCV Plan: We will obtain echocardiogram. Repeat lactic acid. Replace potassium. Blood culture. Urine culture. Add vancomycin. Check Legionella. Rocephin. Increase IV fluids. Further plan per orders. Total critical care time 45 minutes Plan discussed with: Patient, Other (Father at bedside. Nursing) My Orders Orders - FER HENRY MD Procedure Category Date Status Time Ceftriaxone 1gm/50ml PHA 09/16/24 In Process D5w (Rocephin) 09:00 Vancomycin Per PHA 09/15/24 In Process Pharmacy 10:45 Respiratory Culture TAWANNA 09/15/24 Logged W/ Gs 10:35 Legionella LAB 09/15/24 In Process Pneumophila Abs 10:35 Echo 2d Mode Cardiac US 09/15/24 Logged DOP 10:39 Urine Bacterial TAWANNA 09/15/24 In Process Culture 10:39 Chest Portable XY 09/16/24 Logged 06:00 Vancomycin 1.5gm/300ml PHA 09/15/24 In Process 12:00 Vancomycin,Trough LAB 09/16/24 Verified 23:00 Vancomycin Per DIANA 09/15/24 In Process Pharmacy Protoc 11:30 Date of Service: Sep 15, 2024 Billing Provider: FER HENRY MD Common Visit Codes: [id number] CARE 30-74 MIN FER HENRY MD Sep 15, 2024 13:29
[2024-09-15] MEDS ORDERED: methylPREDNISolone SOD SUCC 40 MG/ML VL IV SCH (14:00)
[2024-09-15] MEDS: ACETAMINOPHEN 325 MG TAB PO PRN (14:48)
--- NOTE | 2024-09-15 17:16 | DVHSR ---
APPROVED REPORT EXAM: Two-dimensional and M-mode echocardiogram with Doppler and color Doppler. Blood Pressure: 109/64 mmHg INDICATION Rule out endocarditis with multifocal pneumonia RISK FACTORS Height: 65, Weight: 120 DIMENSIONS LVDd4.4 (3.8-5.7cm)LA (2D)3.5 (1.9-4.0cm)Aortic Root2.8 (2.0-3.7cm) LVDs3.0 (2.5-4.0cm)LA (MM) (1.9-4.0cm)Aortic Cusp Exc1.7 (1.5-2.0cm) EF (%) 60.0 (55-70%)Rt. Atrium3.1 (1.9-4.0cm)Asc. Aorta cm IVSd1.0 (0.7-1.1cm)RV (D) (1.8-2.4cm) PWd0.9 (0.7-1.1cm) Mitral Valve MitralMitral Stenosis E/A ratio0.02D MVAcm2 Aortic Valve Aortic ValveAortic Stenosis V11.11m/Harris Mean GR.4mmHg V21.46m/Harris Peak GR.9mmHg LVOT Diameter1.8 (1.8-2.4cm)Doppler AVA1.93cm2 Pulmonic Valve V20.93m/s Tricuspid Valve TR Velocity2.25m/s [id number] Conclusion LV EJECTION FRACTION IS 65% NORMAL VALVES NO EFFUSION NORMAL RV FUNCTION AND SIZE
[2024-09-15] MEDS: SODIUM CHLORIDE 0.9% 500 ML IV ONE (17:30)
[2024-09-15] MEDS ORDERED: diphenhdrAMINE HCL 50 MG/1 ML VL IM ONE (20:00)
[2024-09-15] MEDS: LEVALBUTEROL HCL 1.25 MG/3 ML NEB NEB SCH (22:21)
[2024-09-15] MEDS: IPRATROPIUM BROM 0.5 MG/2.5ML INH SOL NEB PRN (22:21)
--- NOTE | 2024-09-15 23:25 | DVHINCON2 ---
Date of service: Sep 15, 2024 Referring Physician Marty Camacho DNP Reason for Consultation Acute hypoxic respiratory failure and multifocal pneumonia. History of Present Illness A 19-year-old woman with no significant past medical history who presents to ED today with complaint of generalized weakness. Patient reports symptoms progressively worsened with shortness of breath at rest, diaphoretic, episodes of confusion, hypoxia saturating at 80% on room air, and tachycardia, prompting the visit. ED workup showed WBC 6.1, hemoglobin 10.8, hematocrit 34.3, platelets 311, sodium 135, potassium 3.9, BUN 11, creatinine 0.86, GFR 99, glucose 158, lactic acid 6.9, D-dimer 0.66, troponin 8. Vitals: BP 91/55, heart rate 136, temperature 98.8 F, O2 saturation 92% on oxygen. Chest x-ray revealing multifo dago pneumonia throughout the lungs, most prominent in the left lower lobe. Patient was admitted for further care and pulmonary consultation is requested for evaluation and management of acute hypoxic respiratory failure and multifocal pneumonia. Review of Systems: 14-point review of systems negative unless otherwise noted above. Past Medical History: Denies Past Surgical History: Denies Medications: Reviewed. Allergies: No known drug allergies. Family History: No family history of premature CAD. No family history of lung disorders. Social History: Nonsmoker. No alcohol or illicit drug use. Allergies: Coded Allergies: NO KNOWN ALLERGIES (Unverified , 06/09/13) Home Meds Reported Medications Diphenhydramine Hcl (Benadryl) 25 Mg Cap 06/09/13 [Prelone] No Conflict Check 06/09/13 Current Medications Current Medications Medications (Trade) Dose Ordered Sig/Yayo Route PRN Reason Start Time Stop Time Status Last Admin Norepinephrine Bitartrate 250 ml @ 3.75 mls/hr Q24H IV 09/15/24 03:30 09/15/24 14:57 DC 09/15/24 03:30 Piperacillin Sod/ Tazobactam Sod 100 ml @ 25 mls/hr Q8HR IV 09/15/24 06:00 09/15/24 10:39 DC 09/15/24 06:26 Azithromycin 250 ml @ 125 mls/hr DAILY IV 09/15/24 10:00 09/15/24 09:54 Albuterol (Ventolin Medneb) 2.5 mg Q4HPRN PRN NEB SHORTNESS OF BREATH 09/15/24 04:00 09/15/24 14:34 DC Ipratropium [place] (Atrovent Medneb) 0.5 mg Q4HPRN PRN NEB SHORTNESS OF BREATH 09/15/24 04:00 09/15/24 22:21 Sodium Chloride 1,000 ml @ 60 mls/hr [id number] IV 09/15/24 04:00 09/15/24 13:30 DC 09/15/24 04:00 Acetaminophen/ Hydrocodone Bitart ([place] 5/325MG Tab) 1 tab Q4HP PRN PO MODERATE PAIN (4-6 PAIN SCALE) 09/15/24 04:00 Ondansetron HCl (Zofran) 4 mg Q4HP PRN IV NAUSEA / VOMITING 09/15/24 04:00 Docusate Sodium (Colace Capsule) 100 mg BIDPRN PRN PO FOR CONSTIPATION 09/15/24 04:00 Acetaminophen (Tylenol Tablet) 650 mg Q6HP PRN PO PAIN SCALE 1-3 OR TEMP>100.4 09/15/24 04:00 09/15/24 14:48 Nitroglycerin (Ntrostat Sublingual) 0.4 mg Q5MINP PRN SL FOR CHEST PAIN 09/15/24 04:00 Morphine Sulfate 2 mg Q30M PRN IV FOR CHEST PAIN 09/15/24 04:00 Methylprednisolone Sodium Succinate (Solu Medrol) 40 mg Q8HR IV 09/15/24 14:00 09/15/24 10:46 DC Famotidine (Pepcid Injection) 20 mg Q12HR IV 09/15/24 10:00 09/15/24 22:01 Ceftriaxone Sodium 50 ml @ 100 mls/hr DAILY@09 IV 09/16/24 09:00 Vancomycin HCl 0 ml @ 0 mls/hr UD IV 09/15/24 10:45 Vancomycin HCl 300 ml @ 200 mls/hr Q12H IV 09/15/24 12:00 09/15/24 12:57 Sodium Chloride 1,000 ml @ 100 mls/hr Q10H IV 09/15/24 13:30 09/15/24 13:30 Levalbuterol HCl (Xopenex Medneb) 0.625 mg Q8HR NEB 09/15/24 22:00 09/15/24 22:21 Norepinephrine Bitartrate 250 ml @ 3.75 mls/hr Q24H IV 09/15/24 18:30 09/15/24 18:29 Vital Signs Vital Signs Date Time Temp Pulse Resp B/P (MAP) Pulse Ox O2 Delivery O2 Flow Rate FiO2 09/15/24 23:15 99 35 114/72 (86) 98 09/15/24 22:21 40.0 50 09/15/24 19:53 Hi-Flow NC 09/15/24 19:30 97.9 97.9 Physical Exam Gen.: Patient lying in bed in no apparent distress. On supplemental oxygen. Head: Normocephalic, atraumatic. Eyes: EOMI/PERRLA. Ears: Normal hearing. Normal anatomy. Neck/trachea: Trachea midline, supple. Nose: Normal external anatomy. Mouth: Moist mucous membranes. Chest: Decreased air entry bilaterally. No wheezing or rhonchi. Cardiovascular: Positive S1, positive S2. Regular rate and rhythm. Abdomen: Positive bowel sounds in all 4 quadrants. Soft, non-tender, non-dis tended. : Deferred. Rectal: Deferred. Skin: Warm, dry. Intact. Extremities: 2+ radial pulses bilaterally. No lower extremity edema. Neuro: Awake, alert, oriented x3. No gross motor or sensory deficits. Cranial nerves II through XII intact. Gait not assessed. Labs/Diagnostic Data Labs Test 09/15/24 11:12 09/15/24 10:54 09/15/24 06:33 09/15/24 05:00 Range/Units Urine Color Colorless Yellow Urine Clarity Clear Clear Urine pH 5.0 5.0-9.0 Urine Specific [place] 1.007 1.001-1.035 Urine Protein Negative Negative Urine Ketones Negative Negative Urine Blood Negative Negative /uL Urine Nitrite Negative Negative Urine Bilirubin Negative Negative Urine Urobilinogen Normal Negative mg/dL Urine Leukocyte Esterase Negative Negative /uL Urine RBC 1 0 - 4 /hpf Urine WBC 1 0 - 5 /hpf Urine Squamous Epithelial Cells Few <5 /hpf Urine Bacteria Few H None Seen /hpf Urine Glucose 3+ H Normal mg/dL Lactic Acid Level 5.1 *H 0.4-2.0 mmol/L White Blood Count 3.1 #L 4.4-10.8 10^3/uL Red Blood Count 4.51 4.0-5.20 10^6/uL Hemoglobin 10.9 L 12.2-16.2 g/dL Hematocrit 34.4 L 36.0-46.0 % Mean Corpuscular Volume 76.4 L 80.0-100.0 fL Mean Corpuscular Hemoglobin 24.2 L 28.0-32.0 pg Mean Corpuscular Hemoglobin Concent 31.7 L 32.0-36.0 g/dL Red Cell Distribution Width 15.6 H 11.8-14.3 % Platelet Count 269 140-450 10^3/uL Mean Platelet Volume 6.9 6.9-10.8 fL Neutrophils (%) (Auto) 90.2 H 37.0-80.0 % Lymphocytes (%) (Auto) 4.1 L 10.0-50.0 % Monocytes (%) (Auto) 5.4 0.0-12.0 % Eosinophils (%) (Auto) 0.1 0.0-7.0 % Basophils (%) (Auto) 0.2 0.0-2.0 % Neutrophils # (Auto) 2.8 1.6-8.6 10 ^3/uL Lymphocytes # (Auto) 0.1 L 0.4-5.4 10 ^3/uL Monocytes # (Auto) 0.2 0-1.3 10 ^3/uL Eosinophils # (Auto) 0 0-0.8 10 ^3/uL Basophils # (Auto) 0 0-0.2 10 ^3/uL Nucleated Red Blood Cells 0.0 % Sodium Level 136 136-145 mmol/L Potassium Level 3.3 L 3.5-5.1 mmol/L Chloride Level 108 H 98-107 mmol/L Carbon Dioxide Level 16 L 20-31 mmol/L Anion Gap 12 5-15 Blood Urea Nitrogen 7 L 9-23 mg/dL Creatinine 0.65 0.550-1.02 mg/dL Glomerular Filtration Rate Calc 128 >90 mL/min BUN/Creatinine Ratio 10.8 10.0-20.0 Serum Glucose 105 74-106 mg/dL Hemoglobin A1c 5.5 <5.7 % A1C Calcium Level 8.2 L 8.7-10.4 mg/dL Total Bilirubin 0.4 0.2-1.0 mg/dL Aspartate Amino Transferase (AST) 14 13-40 U/L Alanine Aminotransferase (ALT) 11 7-40 U/L Alkaline Phosphatase 36 L 46-116 U/L Total Protein 5.2 L 5.7-8.2 g/dL Albumin 3.1 L 3.2-4.8 g/dL Test 09/15/24 03:50 09/15/24 03:30 09/14/24 23:25 09/14/24 22:27 Range/Units Blood Gas Specimen Type Arterial Blood Gas Sample Site Right radial Blood Gas Patient Temperature 37.0 Arterial Blood Date Drawn Arterial Blood pH 7.411 7.350-7.450 Arterial Blood Partial Pressure CO2 28.1 L 32.0-45.0 mmHg Arterial Blood Partial Pressure O2 108.4 H 83.0-108.0 mmHg Arterial Blood HCO3 17.5 L 21.0-28.0 mmol/L Arterial Blood Oxygen Saturation 97.8 94.0-98.0 % Arterial Blood Base Excess -6.1 L -2.0-3.0 mmol/L Arterial Blood Oxyhemoglobin 96.7 94.0-98.0 % Arterial Blood Carboxyhemoglobin 0.3 L 0.5-1.5 % Arterial Blood Methemoglobin 0.8 0.0-1.5 % Padilla Test Yes Blood Gas Total Hemoglobin 10.30 L 12.0-16.0 g/dL Blood Gas Liter Flow 60.00 Blood Gas Modality High flow FiO2 % 100.0 Influenza Type A Antigen Negative Negative Influenza Type B Antigen Negative Negative SARS-CoV-2 Antigen (Rapid) Negative NEGATIVE Troponin I High Sensitivity 8 </=34 ng/L D-Dimer, Quantitative 0.66 H 0.0-0.49 mg/L FEU Beta HCG, Quantitative 0.4 L 1.5-4.2 mIU/mL Test 09/14/24 22:09 Range/Units POC Glucose 124 H 70-106 mg/dl Microbiology Date/Time Source Procedure Growth Status 09/14/24 22:27 Blood Blood Culture - Preliminary NO GROWTH AFTER 24 HOURS OF INCUBATION. Resulted Assessment Impression: Acute hypoxic respiratory failure Multifocal pneumonia Sepsis Elevated D-dimer Shock Plan: On high flow supplemental oxygen Titrate to keep O2 sats above 92%. Taper O2 as tolerated. On pressors for hemodynamic support Levophed 4 mcg/min Titrate to keep mean arterial pressure greater than 65 mmHg. Continue bronchodilators. Continue antibiotics Monitor renal function. Monitor electrolytes. Supplement as necessary. Monitor ins and outs. DVT prophylaxis. Prognosis: Poor given patient's multiple co-morbidities. Condition: Critical Rest of plan per hospitalist and other consultants. A total of 36 minutes of critical care time was spent reviewing the patient record, examining the patient, making a diagnostic and therapeutic plan, discussing this plan with the medical personnel, following up on diagnostic studies and following the patient for clinical stability excluding any and all procedures. At least 50% of this time was spent in direct, [id number] contact. Thank you, Marty Camacho DNP, for allowing me to participate in this patient's care. Further recommendations will depend on the patient's clinical course. Please do not hesitate to contact me if you have any questions or concerns. This medical document was created using an electronic medical record system with [employer] dictation system. Although these documentations are being carefully reviewed, there may still be some phonetic and typographical changes. The errors are purely typographical, due to imperfection on the software program, and do not reflect any compromise in the patient's medical care. Plan discussed with: Patient, Other (RN/GRAEME Camacho/) JOHN HUERTA MD Sep 15, 2024 23:25
[2024-09-16] VITALS (13 sets, daily range): BP systolic 96–121; BP diastolic 54–78; PULSE 85–127; RESP 18–26; TEMP 98.7–99.3; O2SAT 92–100
[2024-09-16 04:17] LABS: Basophils # (auto) 0 10 ^3/uL (0-0.2); Eosinophils # (auto) 0 10 ^3/uL (0-0.8); Mean Corpuscular Volume 72.5 fL (80.0-100.0)
[2024-09-16 04:20] LABS: Eosinophils % (auto) 0.1 % (0.0-7.0); Hematocrit 31.3 % (36.0-46.0); Hemoglobin 10.5 g/dL (12.2-16.2); Lymphocytes # (auto) 0.6 10 ^3/uL (0.4-5.4); Lymphocytes % (auto) 4.4 % (10.0-50.0); Mean Corpuscular Hemoglobin 24.3 pg (28.0-32.0); Mean Corpuscular Hgb Conc. 33.5 g/dL (32.0-36.0); Monocytes # (auto) 0.7 10 ^3/uL (0-1.3); Monocytes % (auto) 5.1 % (0.0-12.0); Neutrophils % (auto) 90.4 % (37.0-80.0); Platelet Count (auto) 309 10^3/uL (140-450); Red Blood Cells 4.32 10^6/uL (4.0-5.20); Red Cell Distribution Width 15.6 % (11.8-14.3); White Blood Cell 13.3 10^3/uL (4.4-10.8)
[2024-09-16 04:40] LABS: Alanine Aminotransferase 10 U/L (7-40); Anion Gap 8 (5-15); BUN/Creatinine Ratio 16.7 (10.0-20.0); Calcium 8.8 mg/dL (8.7-10.4); Carbon Dioxide 23 mmol/L (20-31); Glucose 100 mg/dL (74-106); Sodium 143 mmol/L (136-145)
[2024-09-16 05:10] LABS: Albumin 3.2 g/dL (3.2-4.8); Alkaline Phosphatase 37 U/L (46-116); Aspartate Aminotransferase 8 U/L (13-40); Bilirubin, Total 0.3 mg/dL (0.2-1.0); Blood Urea Nitrogen 9 mg/dL (9-23); Chloride 112 mmol/L (98-107); Potassium 3.4 mmol/L (3.5-5.1); Total Protein 5.3 g/dL (5.7-8.2)
--- NOTE | 2024-09-16 06:30 | DVH ---
CHEST RADIOGRAPH Indication: fu Technique: Single frontal view of the chest was obtained Comparison: XY CHEST PORTABLE on DOS: 09/14/24 FINDINGS: Lines and Tubes: None Lungs: Bilateral airspace consolidation left greater than right. Pleura: Possible left pleural effusion. No pneumothorax. Cardiomediastinal contours: Unremarkable Bones: No acute osseous abnormality. IMPRESSION: 1. Bilateral consolidation left greater than right. 2. Left pleural effusion.
[2024-09-16] MEDS: cefTRIAXone 1GM/50ML D5W 50 ML IV SCH (09:31)
--- NOTE | 2024-09-16 11:31 | DVHPN2 ---
Subjective The patient seen and examined at bedside. No complains today. Reviewed: Care Plan, H&P, Labs, Medications, Previous Orders, Radiology Changes from previous H/P or p: No Changes Respiratory: Shortness of breath, Other Objective Vitals Vital Signs Date Time Temp Pulse Resp B/P (MAP) Pulse Ox O2 Delivery O2 Flow Rate FiO2 09/16/24 08:03 114 09/16/24 07:15 24 108/54 (72) 97 09/16/24 06:51 20.0 30 09/15/24 19:53 Hi-Flow NC 09/15/24 19:30 97.9 97.9 Intake/Output Intake and Output 09/16/24 07:00 Intake Total 5011.000 ml Balance 5011.000 ml Intake Oral 1150 ml IV Total 3861.000 ml # Voids 7 # Bowel Movements 1 General Appearance: Alert, Oriented X3, Cooperative, No acute distress HEENT: Atraumatic Lungs: Other (Few crackles bilateral lungs with moderate to good air entry) Cardiovascular: Other (Borderline tachycardia at this time) Abdomen: Normal bowel sounds, Soft, No tenderness Extremities: No edema Medications Current Medications Medications Dose Ordered Sig/Yayo Route Start Time Stop Time Status Last Admin Dose Admin Azithromycin 250 ml @ 125 mls/hr DAILY IV 09/15/24 10:00 09/16/24 10:14 125 MLS/HR Ipratropium [place] 0.5 mg Q4HPRN PRN NEB 09/15/24 04:00 09/16/24 06:50 0.5 MG Acetaminophen/ Hydrocodone Bitart 1 tab Q4HP PRN PO 09/15/24 04:00 Ondansetron HCl 4 mg Q4HP PRN IV 09/15/24 04:00 Docusate Sodium 100 mg BIDPRN PRN PO 09/15/24 04:00 Acetaminophen 650 mg Q6HP PRN PO 09/15/24 04:00 09/16/24 10:14 650 MG Nitroglycerin 0.4 mg Q5MINP PRN SL 09/15/24 04:00 Morphine Sulfate 2 mg Q30M PRN IV 09/15/24 04:00 Famotidine 20 mg Q12HR IV 09/15/24 10:00 09/16/24 10:14 20 MG Ceftriaxone Sodium 50 ml @ 100 mls/hr DAILY@09 IV 09/16/24 09:00 09/16/24 09:31 100 MLS/HR Vancomycin HCl 0 ml @ 0 mls/hr UD IV 09/15/24 10:45 Vancomycin HCl 300 ml @ 200 mls/hr Q12H IV 09/15/24 12:00 09/15/24 23:30 200 MLS/HR Sodium Chloride 1,000 ml @ 100 mls/hr Q10H IV 09/15/24 13:30 09/16/24 04:56 100 MLS/HR Levalbuterol HCl 0.625 mg Q8HR NEB 09/15/24 22:00 09/16/24 06:51 0.625 MG Norepinephrine Bitartrate 250 ml @ 3.75 mls/hr Q24H IV 09/15/24 18:30 09/15/24 18:29 3.75 MLS/HR Laboratory Results Laboratory Tests 09/16/24 03:45 Chemistry Test 09/16/24 03:45 Albumin 3.2 g/dL (3.2-4.8) Calcium Level 8.8 mg/dL (8.7-10.4) Total Protein 5.3 g/dL (5.7-8.2) L LFT Test 09/16/24 03:45 Alanine Aminotransferase (ALT) 10 U/L (7-40) Alkaline Phosphatase 37 U/L (46-116) L Aspartate Amino Transferase (AST) 8 U/L (13-40) L Total Bilirubin 0.3 mg/dL (0.2-1.0) Urinalysis Test 09/15/24 11:12 Urine Color Colorless (Yellow) Urine Clarity Clear (Clear) Urine pH 5.0 (5.0-9.0) Urine Specific [place] 1.007 (1.001-1.035) Urine Protein Negative (Negative) Urine Ketones Negative (Negative) Urine Blood Negative /uL (Negative) Urine Nitrite Negative (Negative) Urine Bilirubin Negative (Negative) Urine Urobilinogen Normal mg/dL (Negative) Urine Leukocyte Esterase Negative /uL (Negative) Urine RBC 1 /hpf (0 - 4) Urine WBC 1 /hpf (0 - 5) Urine Squamous Epithelial Cells Few /hpf (<5) Urine Bacteria Few /hpf (None Seen) H Urine Glucose 3+ mg/dL (Normal) H Microbiology Microbiology Date/Time Source Procedure Growth Status 09/15/24 11:12 Voided Urine Urine Culture - Preliminary Resulted 09/14/24 22:27 Blood Blood Culture - Preliminary NO GROWTH AFTER 24 HOURS OF INCUBATION. Resulted Labs and/or images reviewed: Labs reviewed by me Assessment/Plan Assessment/Plan Multilobar Pneumonia, unspecified organisms Generalized weakness Hyperglycemia Elevated D-dimer Sepsis, unspecified organism Shock, resolved Acute respiratory failure with hypoxia Continuing current management. Continuing with IV antibiotic Rocephin and vancomycin. Continuing with sliding scale insulin. We will monitor culture. Continuing with oxygen. Continuing with nebulizer. Encouraged the patient to be out of bed and ambulate. Wean patient off Levophed. We will downgrade the patient to telemetry. CT chest angio reviewed, no pulmonary embolism. Discussed with patient, sister and mother at bedside. Plan discussed with: Patient Date of Service: Sep 16, 2024 Billing Provider: LAUREL TIM MD Common Visit Codes: [id number] INP/OBS CARE(HIGH) LAUREL TIM MD Sep 16, 2024 11:31
[2024-09-16] MEDS: ONDANSETRON HCL 4 MG/2 ML VIAL IV PRN (12:33)
[2024-09-16] MEDS: HYDROcodone-ACET 5/325MG TAB PO PRN (18:20)
[2024-09-16] MEDS: guaiFENesin-DM 100/10mg/5ml SYR PO PRN (22:10)
[2024-09-16] MEDS: IBUPROFEN 600 MG TAB PO PRN (22:10)
--- NOTE | 2024-09-16 22:26 | DVHPN2 ---
Progress Note - Dictate Date Seen: Sep 16, 2024 Medical Necessity Reason Pt with a Central, PICC or Fol: No Subjective Patient seen and examined at bedside. Remains on supplemental oxygen Overnight events reviewed. vital signs Vital Sign Date Time Temp Pulse Resp B/P (MAP) Pulse Ox O2 Delivery O2 Flow Rate FiO2 09/16/24 21:00 99.3 102 20 112/59 (76) 92 99.3 09/16/24 18:27 Nasal Cannula* 2 28 Total Intake and Output 09/15/24 09/15/24 09/16/24 15:00 23:00 07:00 Intake Total 1110 ml 1772.5 ml 2128.500 ml Balance 1110 ml 1772.5 ml 2128.500 ml medications Current Medications Medications Dose Ordered Sig/Yayo Route Start Time Stop Time Status Last Admin Dose Admin Azithromycin 250 ml @ 125 mls/hr DAILY IV 09/15/24 10:00 09/16/24 10:14 125 MLS/HR Ipratropium [place] 0.5 mg Q4HPRN PRN NEB 09/15/24 04:00 09/16/24 18:26 0.5 MG Acetaminophen/ Hydrocodone Bitart 1 tab Q4HP PRN PO 09/15/24 04:00 09/16/24 18:20 1 TAB Ondansetron HCl 4 mg Q4HP PRN IV 09/15/24 04:00 09/16/24 12:33 4 MG Docusate Sodium 100 mg BIDPRN PRN PO 09/15/24 04:00 Nitroglycerin 0.4 mg Q5MINP PRN SL 09/15/24 04:00 Morphine Sulfate 2 mg Q30M PRN IV 09/15/24 04:00 Famotidine 20 mg Q12HR IV 09/15/24 10:00 09/16/24 10:14 20 MG Ceftriaxone Sodium 50 ml @ 100 mls/hr DAILY@09 IV 09/16/24 09:00 09/16/24 09:31 100 MLS/HR Vancomycin HCl 0 ml @ 0 mls/hr UD IV 09/15/24 10:45 Vancomycin HCl 300 ml @ 200 mls/hr Q12H IV 09/15/24 12:00 09/16/24 12:33 200 MLS/HR Sodium Chloride 1,000 ml @ 100 mls/hr Q10H IV 09/15/24 13:30 09/16/24 04:56 100 MLS/HR Levalbuterol HCl 0.625 mg Q8HR NEB 09/15/24 22:00 09/16/24 18:27 0.625 MG Norepinephrine Bitartrate 250 ml @ 3.75 mls/hr Q24H IV 09/15/24 18:30 Hold 09/15/24 18:29 3.75 MLS/HR Ibuprofen 600 mg Q8HP PRN PO 09/16/24 20:45 Guaifenesin/ Dextromethorphan 10 ml Q4HP PRN PO 09/16/24 20:45 objective Gen.: Patient lying in bed in no apparent distress. On supplemental oxygen. Head: Normocephalic, atraumatic. Eyes: EOMI/PERRLA. Ears: Normal hearing. Normal anatomy. Neck/trachea: Trachea midline, supple. Nose: Normal external anatomy. Mouth: Moist mucous membranes. Chest: Decreased air entry bilaterally. No wheezing or rhonchi. Cardiovascular: Positive S1, positive S2. Regular rate and rhythm. Abdomen: Positive bowel sounds in all 4 quadrants. Soft, non-tender, non- distended. : Deferred. Rectal: Deferred. Skin: Warm, dry. Intact. Extremities: 2+ radial pulses bilaterally. No lower extremity edema. Neuro: Awake, alert, oriented x3. No gross motor or sensory deficits. Cranial nerves II through XII intact. Gait not assessed. laboratory and microbiology Laboratory Tests 09/16/24 03:45 Test 09/16/24 03:45 Range/Units Serum Glucose 100 74-106 mg/dL Assessment/Plan Impression: Acute hypoxic respiratory failure Multifocal pneumonia Sepsis Elevated D-dimer Shock Events: Remains on supplemental oxygen, 2 LPM NC Taper O2 as tolerated Improved O2 requirements CT chest notable for findings of multifocal pneumonia Continue bronchodilators Continue antibiotics Incentive spirometry Antitussive PRN cough. Blood cultures show no growth. Urine cultures show no growth. Updated parents at bedside. Labs and imaging reviewed. Rest of plan as noted below. Plan: Supplemental oxygen Titrate to keep O2 sats above 92%. Off pressors, hemodynamically stable. Continue bronchodilators. Continue antibiotics Monitor renal function. Monitor electrolytes. Supplement as necessary. Monitor ins and outs. DVT prophylaxis. Prognosis: Poor given patient's multiple co-morbidities. Condition: Critical Rest of plan per hospitalist and other consultants. A total of 35 minutes of critical care time was spent reviewing the patient record, examining the patient, making a diagnostic and therapeutic plan, discussing this plan with the medical personnel, following up on diagnostic studies and following the patient for clinical stability excluding any and all procedures. At least 50% of this time was spent in direct, [id number] contact. Thank you, Marty Camacho DNP, for allowing me to participate in this patient's care. Further recommendations will depend on the patient's clinical course. Please do not hesitate to contact me if you have any questions or concerns. This medical document was created using an electronic medical record system with [employer] computerized dictation system. Although these documentations are being carefully reviewed, there may still be some phonetic and typographical changes. The errors are purely typographical, due to imperfection on the software program, and do not reflect any compromise in the patient's medical care. Plan discussed with: Patient, Other (CHINYERE Valenzuela/DENIZ Ellington) Critical Care Time(min): 35 JOHN HUERTA MD Sep 16, 2024 22:26
[2024-09-17] VITALS (16 sets, daily range): BP systolic 102–128; BP diastolic 55–78; PULSE 97–115; RESP 15–22; TEMP 98.1–100.4; O2SAT 91–100
[2024-09-17] MEDS: ACETAMINOPHEN 325 MG TAB PO PRN (10:26)
--- NOTE | 2024-09-17 11:51 | DVHPN2 ---
Subjective The patient seen and examined at bedside. No complains today. Patient is still had shortness for breath and wheezing Reviewed: Care Plan, H&P, Labs, Medications, Previous Orders, Radiology Changes from previous H/P or p: No Changes Respiratory: Shortness of breath, Other Objective Vitals Vital Signs Date Time Temp Pulse Resp B/P (MAP) Pulse Ox O2 Delivery O2 Flow Rate FiO2 09/17/24 09:16 100.3 113 15 113/65 (81) 95 100.3 09/17/24 08:00 Nasal Cannula* 4 36 Intake/Output Intake and Output 09/17/24 07:00 Intake Total 1305 ml Output Total 300 ml Balance 1005 ml Intake Oral 705 ml IV Total 600 ml Output Urine Total 300 ml # Voids 4 General Appearance: Alert, Oriented X3, Cooperative, No acute distress HEENT: Atraumatic Lungs: Other (Few crackles bilateral lungs with moderate to good air entry) Cardiovascular: Other (Borderline tachycardia at this time) Abdomen: Normal bowel sounds, Soft, No tenderness Extremities: No edema Medications Current Medications Medications Dose Ordered Sig/Yayo Route Start Time Stop Time Status Last Admin Dose Admin Azithromycin 250 ml @ 125 mls/hr DAILY IV 09/15/24 10:00 09/17/24 10:17 125 MLS/HR Ipratropium [place] 0.5 mg Q4HPRN PRN NEB 09/15/24 04:00 09/16/24 18:26 0.5 MG Acetaminophen/ Hydrocodone Bitart 1 tab Q4HP PRN PO 09/15/24 04:00 09/16/24 18:20 1 TAB Ondansetron HCl 4 mg Q4HP PRN IV 09/15/24 04:00 09/17/24 11:02 4 MG Docusate Sodium 100 mg BIDPRN PRN PO 09/15/24 04:00 Nitroglycerin 0.4 mg Q5MINP PRN SL 09/15/24 04:00 Morphine Sulfate 2 mg Q30M PRN IV 09/15/24 04:00 Famotidine 20 mg Q12HR IV 09/15/24 10:00 09/17/24 08:39 20 MG Ceftriaxone Sodium 50 ml @ 100 mls/hr DAILY@09 IV 09/16/24 09:00 09/17/24 08:39 100 MLS/HR Vancomycin HCl 0 ml @ 0 mls/hr UD IV 09/15/24 10:45 Sodium Chloride 1,000 ml @ 100 mls/hr Q10H IV 09/15/24 13:30 09/17/24 05:01 100 MLS/HR Levalbuterol HCl 0.625 mg Q8HR NEB 09/15/24 22:00 09/17/24 06:46 0.625 MG Norepinephrine Bitartrate 250 ml @ 3.75 mls/hr Q24H IV 09/15/24 18:30 Hold 09/15/24 18:29 3.75 MLS/HR Ibuprofen 600 mg Q8HP PRN PO 09/16/24 20:45 09/16/24 22:10 600 MG Guaifenesin/ Dextromethorphan 10 ml Q4HP PRN PO 09/16/24 20:45 09/17/24 08:54 10 ML Acetaminophen 650 mg Q6HP PRN PO 09/16/24 22:30 09/17/24 10:26 650 MG Vancomycin HCl 300 ml @ 200 mls/hr Q8H IV 09/17/24 12:00 Laboratory Results Laboratory Tests 09/16/24 03:45 Urinalysis Test 09/15/24 11:12 Urine Color Colorless (Yellow) Urine Clarity Clear (Clear) Urine pH 5.0 (5.0-9.0) Urine Specific [place] 1.007 (1.001-1.035) Urine Protein Negative (Negative) Urine Ketones Negative (Negative) Urine Blood Negative /uL (Negative) Urine Nitrite Negative (Negative) Urine Bilirubin Negative (Negative) Urine Urobilinogen Normal mg/dL (Negative) Urine Leukocyte Esterase Negative /uL (Negative) Urine RBC 1 /hpf (0 - 4) Urine WBC 1 /hpf (0 - 5) Urine Squamous Epithelial Cells Few /hpf (<5) Urine Bacteria Few /hpf (None Seen) H Urine Glucose 3+ mg/dL (Normal) H Microbiology Microbiology Date/Time Source Procedure Growth Status 09/16/24 14:27 Sputum Gram Stain Pending Resulted 09/16/24 14:27 Sputum Respiratory Culture - Preliminary Resulted 09/15/24 11:12 Voided Urine Urine Culture - Final Complete 09/14/24 22:27 Blood Blood Culture - Preliminary NO GROWTH AFTER 48 HOURS OF INCUBATION. Resulted Labs and/or images reviewed: Labs reviewed by me Assessment/Plan Assessment/Plan Multilobar Pneumonia, unspecified organisms Generalized weakness Hyperglycemia Elevated D-dimer Sepsis, unspecified organism Shock, resolved Acute respiratory failure with hypoxia Continuing current management. Continuing with IV antibiotic Rocephin and vancomycin. Continuing with sliding scale insulin. We will monitor culture. Continuing with oxygen. Continuing with nebulizer. Encouraged the patient to be out of bed and ambulate. CT chest angio reviewed, no pulmonary embolism. Discussed with patient, sister and mother at bedside. Encouraged the patient to use spirometer. This medical document was created using an electronic medical record system with [employer] computerized dictation system. Although this document has been carefully reviewed, there may still be some phonetic and typographical errors. These areas are purely typographical due to imperfections of the software programs, and do not reflect any compromise in the patient's medical care. Plan discussed with: Patient My Orders Orders - LAUREL TIM MD Procedure Category Date Status Time Transfer Orders XFER 09/16/24 Transmitted 12:51 Date of Service: Sep 17, 2024 Billing Provider: LAUREL TIM MD Common Visit Codes: [id number] INP/OBS CARE(HIGH) LAUREL TIM MD Sep 17, 2024 11:51
[2024-09-17] MEDS: VANCOMYCIN 1.5GM/300ML 300 ML IV SCH (13:13)
--- NOTE | 2024-09-17 20:45 | DVHPN2 ---
Progress Note - Dictate Date Seen: Sep 17, 2024 Medical Necessity Reason Pt with a Central, PICC or Fol: No Subjective Patient seen and examined at bedside. Remains on supplemental oxygen Overnight events reviewed. vital signs Vital Sign Date Time Temp Pulse Resp B/P (MAP) Pulse Ox O2 Delivery O2 Flow Rate FiO2 09/17/24 18:24 99.7 09/17/24 16:00 115 15 128/78 (95) 95 09/17/24 13:15 Nasal Cannula 2.5 09/17/24 13:15 28 Total Intake and Output 09/16/24 09/16/24 09/17/24 15:00 23:00 07:00 Intake Total 600 ml 225 ml 480 ml Output Total 300 ml Balance 300 ml 225 ml 480 ml medications Current Medications Medications Dose Ordered Sig/Yayo Route Start Time Stop Time Status Last Admin Dose Admin Azithromycin 250 ml @ 125 mls/hr DAILY IV 09/15/24 10:00 09/17/24 10:17 125 MLS/HR Ipratropium [place] 0.5 mg Q4HPRN PRN NEB 09/15/24 04:00 09/16/24 18:26 0.5 MG Acetaminophen/ Hydrocodone Bitart 1 tab Q4HP PRN PO 09/15/24 04:00 09/16/24 18:20 1 TAB Ondansetron HCl 4 mg Q4HP PRN IV 09/15/24 04:00 09/17/24 11:02 4 MG Docusate Sodium 100 mg BIDPRN PRN PO 09/15/24 04:00 Nitroglycerin 0.4 mg Q5MINP PRN SL 09/15/24 04:00 Morphine Sulfate 2 mg Q30M PRN IV 09/15/24 04:00 Famotidine 20 mg Q12HR IV 09/15/24 10:00 09/17/24 08:39 20 MG Ceftriaxone Sodium 50 ml @ 100 mls/hr DAILY@09 IV 09/16/24 09:00 09/17/24 08:39 100 MLS/HR Vancomycin HCl 0 ml @ 0 mls/hr UD IV 09/15/24 10:45 Sodium Chloride 1,000 ml @ 100 mls/hr Q10H IV 09/15/24 13:30 09/17/24 05:01 100 MLS/HR Levalbuterol HCl 0.625 mg Q8HR NEB 09/15/24 22:00 09/17/24 13:15 0.625 MG Norepinephrine Bitartrate 250 ml @ 3.75 mls/hr Q24H IV 09/15/24 18:30 Hold 09/15/24 18:29 3.75 MLS/HR Ibuprofen 600 mg Q8HP PRN PO 09/16/24 20:45 09/17/24 16:39 600 MG Guaifenesin/ Dextromethorphan 10 ml Q4HP PRN PO 09/16/24 20:45 09/17/24 13:12 10 ML Acetaminophen 650 mg Q6HP PRN PO 09/16/24 22:30 09/17/24 10:26 650 MG Vancomycin HCl 300 ml @ 200 mls/hr Q8H IV 09/17/24 12:00 09/17/24 20:00 200 MLS/HR objective Gen.: Patient lying in bed in no apparent distress. On supplemental oxygen. Head: Normocephalic, atraumatic. Eyes: EOMI/PERRLA. Ears: Normal hearing. Normal anatomy. Neck/trachea: Trachea midline, supple. Nose: Normal external anatomy. Mouth: Moist mucous membranes. Chest: Decreased air entry bilaterally. No wheezing or rhonchi. Cardiovascular: Positive S1, positive S2. Regular rate and rhythm. Abdomen: Positive bowel sounds in all 4 quadrants. Soft, non-tender, non- distended. : Deferred. Rectal: Deferred. Skin: Warm, dry. Intact. Extremities: 2+ radial pulses bilaterally. No lower extremity edema. Neuro: Awake, alert, oriented x3. No gross motor or sensory deficits. Cranial nerves II through XII intact. Gait not assessed. laboratory and microbiology Laboratory Tests 09/16/24 03:45 Test 09/16/24 03:45 Range/Units Serum Glucose 100 74-106 mg/dL Assessment/Plan Impression: Acute hypoxic respiratory failure Multifocal pneumonia Sepsis Elevated D-dimer Shock Events: Remains on supplemental oxygen, 3 LPM NC Taper O2 as tolerated CT chest notable for findings of multifocal pneumonia Continue bronchodilators Continue antibiotics Incentive spirometry Antitussive PRN cough. Follow up cultures. Patient feeling better. Updated parents at bedside. Labs and imaging reviewed. Rest of plan as noted below. Plan: Supplemental oxygen Titrate to keep O2 sats above 92%. Off pressors, hemodynamically stable. Continue bronchodilators. Continue antibiotics Monitor renal function. Monitor electrolytes. Supplement as necessary. Monitor ins and outs. DVT prophylaxis. Prognosis: Guarded given patient's multiple co-morbidities. Rest of plan per hospitalist and other consultants. A total of 51 minutes of clinical care time was spent reviewing the patient record, examining the patient, making a diagnostic and therapeutic plan, discussing this plan with the medical personnel, following up on diagnostic studies and following the patient for clinical stability excluding any and all procedures. At least 50% of this time was spent in direct, [id number] contact. Thank you, Marty Camacho DNP, for allowing me to participate in this patient's care. Further recommendations will depend on the patient's clinical course. Please do not hesitate to contact me if you have any questions or concerns. This medical document was created using an electronic medical record system with [employer] dictation system. Although these documentations are being carefully reviewed, there may still be some phonetic and typographical changes. The errors are purely typographical, due to imperfection on the software program, and do not reflect any compromise in the patient's medical care. Plan discussed with: Patient, Other (CHINYERE Foley/DENIZ) JOHN HUERTA MD Sep 17, 2024 20:45
[2024-09-18] VITALS (21 sets, daily range): BP systolic 107–125; BP diastolic 65–81; PULSE 72–117; RESP 16–20; TEMP 97.8–99.9; O2SAT 78–100
[2024-09-18 06:11] LABS: Hematocrit 28.9 % (36.0-46.0); Red Cell Distribution Width 15.9 % (11.8-14.3)
[2024-09-18 06:15] LABS: Hemoglobin 9.6 g/dL (12.2-16.2); Mean Corpuscular Hemoglobin 23.7 pg (28.0-32.0); Mean Corpuscular Hgb Conc. 33.2 g/dL (32.0-36.0); Mean Corpuscular Volume 71.4 fL (80.0-100.0); Platelet Count (auto) 318 10^3/uL (140-450); Red Blood Cells 4.05 10^6/uL (4.0-5.20); White Blood Cell 24.1 10^3/uL (4.4-10.8)
[2024-09-18 06:38] LABS: Basophils % (manual) 0 (0.0-2.0); Blast Cells 0; Eosinophils % (manual) 0 (0-7); Metamyelocytes % 0; Myelocytes % 0; Promyelocytes % 0; Reactive Lymphocytes 0
[2024-09-18 07:17] LABS: Band Neutrophils % (manual) 1; Lymphocytes % (manual) 10 (10.0-50.0); Monocytes % (manual) 7 (0-12); Platelet Estimate Adequate; Smudge Cells 1 /100 WBC
--- NOTE | 2024-09-18 08:25 | DVHPN2 ---
Subjective The patient seen and examined at bedside. The patient had some red hive after received Zithromax. Reviewed: Care Plan, H&P, Labs, Medications, Previous Orders, Radiology Changes from previous H/P or p: No Changes Respiratory: Shortness of breath, Other Objective Vitals Vital Signs Date Time Temp Pulse Resp B/P (MAP) Pulse Ox O2 Delivery O2 Flow Rate FiO2 09/18/24 06:17 75 16 100 09/18/24 06:11 Nasal Cannula* 2 28 09/18/24 04:51 98.5 115/68 (84) 98.5 Intake/Output Intake and Output 09/18/24 07:00 Intake Total 1740 ml Output Total 400 ml Balance 1340 ml Intake Oral 940 ml IV Total 300 ml Tube Feeding 500 ml Output Urine Total 400 ml # Voids 2 General Appearance: Alert, Oriented X3, Cooperative, No acute distress HEENT: Atraumatic Lungs: Other (Few crackles bilateral lungs with moderate to good air entry) Cardiovascular: Other (Borderline tachycardia at this time) Abdomen: Normal bowel sounds, Soft, No tenderness Extremities: No edema Skin: Other (hives) Medications Current Medications Medications Dose Ordered Sig/Yayo Route Start Time Stop Time Status Last Admin Dose Admin Azithromycin 250 ml @ 125 mls/hr DAILY IV 09/15/24 10:00 09/17/24 10:17 125 MLS/HR Ipratropium [place] 0.5 mg Q4HPRN PRN NEB 09/15/24 04:00 09/18/24 06:11 0.5 MG Acetaminophen/ Hydrocodone Bitart 1 tab Q4HP PRN PO 09/15/24 04:00 09/16/24 18:20 1 TAB Ondansetron HCl 4 mg Q4HP PRN IV 09/15/24 04:00 09/17/24 11:02 4 MG Docusate Sodium 100 mg BIDPRN PRN PO 09/15/24 04:00 Nitroglycerin 0.4 mg Q5MINP PRN SL 09/15/24 04:00 Morphine Sulfate 2 mg Q30M PRN IV 09/15/24 04:00 Famotidine 20 mg Q12HR IV 09/15/24 10:00 09/17/24 23:10 20 MG Ceftriaxone Sodium 50 ml @ 100 mls/hr DAILY@09 IV 09/16/24 09:00 09/17/24 08:39 100 MLS/HR Vancomycin HCl 0 ml @ 0 mls/hr UD IV 09/15/24 10:45 Sodium Chloride 1,000 ml @ 100 mls/hr Q10H IV 09/15/24 13:30 09/18/24 01:30 100 MLS/HR Levalbuterol HCl 0.625 mg Q8HR NEB 09/15/24 22:00 09/18/24 06:11 0.625 MG Norepinephrine Bitartrate 250 ml @ 3.75 mls/hr Q24H IV 09/15/24 18:30 Hold 09/15/24 18:29 3.75 MLS/HR Ibuprofen 600 mg Q8HP PRN PO 09/16/24 20:45 09/18/24 02:11 600 MG Guaifenesin/ Dextromethorphan 10 ml Q4HP PRN PO 09/16/24 20:45 09/18/24 00:07 10 ML Acetaminophen 650 mg Q6HP PRN PO 09/16/24 22:30 09/17/24 10:26 650 MG Vancomycin HCl 300 ml @ 200 mls/hr Q8H IV 09/17/24 12:00 09/18/24 04:00 200 MLS/HR Laboratory Results Laboratory Tests 09/16/24 03:45 09/18/24 05:45 Urinalysis Test 09/15/24 11:12 Urine Color Colorless (Yellow) Urine Clarity Clear (Clear) Urine pH 5.0 (5.0-9.0) Urine Specific [place] 1.007 (1.001-1.035) Urine Protein Negative (Negative) Urine Ketones Negative (Negative) Urine Blood Negative /uL (Negative) Urine Nitrite Negative (Negative) Urine Bilirubin Negative (Negative) Urine Urobilinogen Normal mg/dL (Negative) Urine Leukocyte Esterase Negative /uL (Negative) Urine RBC 1 /hpf (0 - 4) Urine WBC 1 /hpf (0 - 5) Urine Squamous Epithelial Cells Few /hpf (<5) Urine Bacteria Few /hpf (None Seen) H Urine Glucose 3+ mg/dL (Normal) H Microbiology Microbiology Date/Time Source Procedure Growth Status 09/16/24 22:28 Nose MRSA Screen - Final Complete 09/16/24 14:27 Sputum Gram Stain - Final Resulted 09/16/24 14:27 Sputum Respiratory Culture - Preliminary Resulted 09/15/24 11:12 Voided Urine Urine Culture - Final Complete 09/14/24 22:27 Blood Blood Culture - Preliminary NO GROWTH AFTER 72 HOURS OF INCUBATION. Resulted Labs and/or images reviewed: Labs reviewed by me Assessment/Plan Assessment/Plan Multilobar Pneumonia, unspecified organisms Generalized weakness Hyperglycemia Elevated D-dimer Sepsis, unspecified organism Shock, resolved Acute respiratory failure with hypoxia Allergic reaction to IV antibiotic azithromax Continuing current management. Continuing with IV antibiotic Rocephin and vancomycin. I will discontinuing Zithromax. I will give the patient Benadryl 50 mg IV q.6 p.r.n. for itching and hives. Continuing with sliding scale insulin. We will monitor culture. Continuing with oxygen. Continuing with nebulizer. Encouraged the patient to be out of bed and ambulate. CT chest angio reviewed, no pulmonary embolism. Discussed with patient, and mother at bedside. Encouraged the patient to use spirometer. This medical document was created using an electronic medical record system with [employer] computerized dictation system. Although this document has been carefully reviewed, there may still be some phonetic and typographical errors. These areas are purely typographical due to imperfections of the software programs, and do not reflect any compromise in the patient's medical care. Plan discussed with: Patient, Other (mother) Date of Service: Sep 18, 2024 Billing Provider: LAUREL TIM MD Common Visit Codes: [id number] INP/OBS CARE(HIGH) LAUREL TIM MD Sep 18, 2024 08:25
[2024-09-18] MEDS: diphenhdrAMINE HCL 50 MG/1 ML VL IV PRN (11:38)
--- NOTE | 2024-09-18 22:26 | DVHPN2 ---
Progress Note - Dictate Date Seen: Sep 18, 2024 Medical Necessity Reason Pt with a Central, PICC or Fol: No Subjective Patient seen and examined at bedside. Remains on supplemental oxygen Overnight events reviewed. vital signs Vital Sign Date Time Temp Pulse Resp B/P (MAP) Pulse Ox O2 Delivery O2 Flow Rate FiO2 09/18/24 22:00 98.0 107 19 119/77 (91) 96 98.0 09/18/24 20:00 Nasal Cannula* 2 28 Total Intake and Output 09/17/24 09/17/24 09/18/24 15:00 23:00 07:00 Intake Total 300 ml 500 ml 940 ml Output Total 400 ml Balance 300 ml 500 ml 540 ml medications Current Medications Medications Dose Ordered Sig/Yayo Route Start Time Stop Time Status Last Admin Dose Admin Ipratropium [place] 0.5 mg Q4HPRN PRN NEB 09/15/24 04:00 09/18/24 06:11 0.5 MG Acetaminophen/ Hydrocodone Bitart 1 tab Q4HP PRN PO 09/15/24 04:00 09/16/24 18:20 1 TAB Ondansetron HCl 4 mg Q4HP PRN IV 09/15/24 04:00 09/17/24 11:02 4 MG Docusate Sodium 100 mg BIDPRN PRN PO 09/15/24 04:00 Nitroglycerin 0.4 mg Q5MINP PRN SL 09/15/24 04:00 Morphine Sulfate 2 mg Q30M PRN IV 09/15/24 04:00 Famotidine 20 mg Q12HR IV 09/15/24 10:00 09/18/24 22:04 20 MG Ceftriaxone Sodium 50 ml @ 100 mls/hr DAILY@09 IV 09/16/24 09:00 09/18/24 09:38 100 MLS/HR Vancomycin HCl 0 ml @ 0 mls/hr UD IV 09/15/24 10:45 Sodium Chloride 1,000 ml @ 100 mls/hr Q10H IV 09/15/24 13:30 09/18/24 19:22 100 MLS/HR Levalbuterol HCl 0.625 mg Q8HR NEB 09/15/24 22:00 09/18/24 13:09 0.625 MG Norepinephrine Bitartrate 250 ml @ 3.75 mls/hr Q24H IV 09/15/24 18:30 Hold 09/15/24 18:29 3.75 MLS/HR Ibuprofen 600 mg Q8HP PRN PO 09/16/24 20:45 09/18/24 17:57 600 MG Guaifenesin/ Dextromethorphan 10 ml Q4HP PRN PO 09/16/24 20:45 09/18/24 00:07 10 ML Acetaminophen 650 mg Q6HP PRN PO 09/16/24 22:30 09/18/24 13:07 650 MG Vancomycin HCl 300 ml @ 200 mls/hr Q8H IV 09/17/24 12:00 09/18/24 20:16 200 MLS/HR Diphenhydramine HCl 50 mg Q8HP PRN IV 09/18/24 11:15 09/18/24 11:38 50 MG objective Gen.: Patient lying in bed in no apparent distress. On supplemental oxygen. Head: Normocephalic, atraumatic. Eyes: EOMI/PERRLA. Ears: Normal hearing. Normal anatomy. Neck/trachea: Trachea midline, supple. Nose: Normal external anatomy. Mouth: Moist mucous membranes. Chest: Decreased air entry bilaterally. No wheezing or rhonchi. Cardiovascular: Positive S1, positive S2. Regular rate and rhythm. Abdomen: Positive bowel sounds in all 4 quadrants. Soft, non-tender, non- distended. : Deferred. Rectal: Deferred. Skin: Warm, dry. Intact. Extremities: 2+ radial pulses bilaterally. No lower extremity edema. Neuro: Awake, alert, oriented x3. No gross motor or sensory deficits. Cranial nerves II through XII intact. Gait not assessed. laboratory and microbiology Laboratory Tests 09/18/24 05:45 09/16/24 03:45 Test 09/16/24 03:45 Range/Units Serum Glucose 100 74-106 mg/dL Assessment/Plan Impression: Acute hypoxic respiratory failure Multifocal pneumonia Sepsis Elevated D-dimer Shock Events: Remains on supplemental oxygen, 1 LPM NC Taper O2 as tolerated Improving O2 requirements. Patient was noted to desaturate - monitor respiratory status closely. Continue bronchodilators Continue antibiotics Incentive spirometry Antitussive PRN cough. Leukocytosis - WBC of 24.1 K. Blood cultures show no growth for 72 hours. Labs and imaging reviewed. Rest of plan as noted below. Plan: CT chest notable for findings of multifocal pneumonia Supplemental oxygen Titrate to keep O2 sats above 92%. Off pressors, hemodynamically stable. Continue bronchodilators. Continue antibiotics Monitor renal function. Monitor electrolytes. Supplement as necessary. Monitor ins and outs. DVT prophylaxis. Prognosis: Guarded given patient's multiple co-morbidities. Rest of plan per hospitalist and other consultants. A total of 51 minutes of clinical care time was spent reviewing the patient record, examining the patient, making a diagnostic and therapeutic plan, discussing this plan with the medical personnel, following up on diagnostic studies and following the patient for clinical stability excluding any and all procedures. At least 50% of this time was spent in direct, [id number] contact. Thank you, Marty Camacho DNP, for allowing me to participate in this patient's care. Further recommendations will depend on the patient's clinical course. Please do not hesitate to contact me if you have any questions or concerns. This medical document was created using an electronic medical record system with [employer] computerized dictation system. Although these documentations are being carefully reviewed, there may still be some phonetic and typographical changes. The errors are purely typographical, due to imperfection on the software program, and do not reflect any compromise in the patient's medical care. Plan discussed with: Patient, Other (CHINYERE Lawrence) JOHN HUERTA MD Sep 18, 2024 22:26
[2024-09-19] VITALS (12 sets, daily range): BP systolic 110–138; BP diastolic 67–79; PULSE 65–103; RESP 14–18; TEMP 97.9–98.8; O2SAT 92–100
[2024-09-19] MEDS: VANCOMYCIN 1GM/250ML KIT 250 ML IV ONE (05:12)
[2024-09-19 06:29] LABS: Hemoglobin 9.5 g/dL (12.2-16.2); Mean Corpuscular Hemoglobin 23.4 pg (28.0-32.0)
[2024-09-19 06:31] LABS: Mean Corpuscular Hgb Conc. 32.9 g/dL (32.0-36.0); Mean Corpuscular Volume 71.1 fL (80.0-100.0); Platelet Count (auto) 329 10^3/uL (140-450); Red Blood Cells 4.08 10^6/uL (4.0-5.20); Red Cell Distribution Width 15.8 % (11.8-14.3); White Blood Cell 19.1 10^3/uL (4.4-10.8)
[2024-09-19 06:52] LABS: Basophils % (manual) 0 (0.0-2.0); Blast Cells 0; Metamyelocytes % 0; Myelocytes % 0; Promyelocytes % 0; Reactive Lymphocytes 0
[2024-09-19 07:45] LABS: Band Neutrophils % (manual) 2; Eosinophils % (manual) 1 (0-7); Lymphocytes % (manual) 22 (10.0-50.0); Monocytes % (manual) 6 (0-12)
[2024-09-19 07:46] LABS: Hypochromia Slight; Platelet Estimate Adequate
--- NOTE | 2024-09-19 11:18 | DVHPN2 ---
Reviewed: Care Plan, H&P, Labs, Medications, Previous Orders, Radiology Changes from previous H/P or p: No Changes Respiratory: Shortness of breath, Other Objective Vitals Vital Signs Date Time Temp Pulse Resp B/P (MAP) Pulse Ox O2 Delivery O2 Flow Rate FiO2 09/19/24 09:00 98.0 85 16 110/71 (84) 95 98.0 09/19/24 06:02 Room Air 09/19/24 06:02 0 21 Intake/Output Intake and Output 09/19/24 07:00 Intake Total 2060 ml Balance 2060 ml Intake Oral 1150 ml IV Total 910 ml # Voids 4 General Appearance: Alert, Oriented X3, Cooperative, No acute distress HEENT: Atraumatic Lungs: Other (Few crackles bilateral lungs with moderate to good air entry) Cardiovascular: Other (Borderline tachycardia at this time) Abdomen: Normal bowel sounds, Soft, No tenderness Extremities: No edema Skin: Other (hives) Medications Current Medications Medications Dose Ordered Sig/Yayo Route Start Time Stop Time Status Last Admin Dose Admin Ipratropium [place] 0.5 mg Q4HPRN PRN NEB 09/15/24 04:00 09/19/24 06:02 0.5 MG Acetaminophen/ Hydrocodone Bitart 1 tab Q4HP PRN PO 09/15/24 04:00 09/16/24 18:20 1 TAB Ondansetron HCl 4 mg Q4HP PRN IV 09/15/24 04:00 09/17/24 11:02 4 MG Docusate Sodium 100 mg BIDPRN PRN PO 09/15/24 04:00 Nitroglycerin 0.4 mg Q5MINP PRN SL 09/15/24 04:00 Morphine Sulfate 2 mg Q30M PRN IV 09/15/24 04:00 Famotidine 20 mg Q12HR IV 09/15/24 10:00 09/19/24 10:17 20 MG Ceftriaxone Sodium 50 ml @ 100 mls/hr DAILY@09 IV 09/16/24 09:00 09/19/24 10:17 100 MLS/HR Vancomycin HCl 0 ml @ 0 mls/hr UD IV 09/15/24 10:45 Sodium Chloride 1,000 ml @ 100 mls/hr Q10H IV 09/15/24 13:30 09/18/24 19:22 100 MLS/HR Levalbuterol HCl 0.625 mg Q8HR NEB 09/15/24 22:00 09/19/24 06:02 0.625 MG Ibuprofen 600 mg Q8HP PRN PO 09/16/24 20:45 09/18/24 17:57 600 MG Guaifenesin/ Dextromethorphan 10 ml Q4HP PRN PO 09/16/24 20:45 09/18/24 00:07 10 ML Acetaminophen 650 mg Q6HP PRN PO 09/16/24 22:30 09/18/24 13:07 650 MG Vancomycin HCl 300 ml @ 200 mls/hr Q8H IV 09/17/24 12:00 09/19/24 05:14 200 MLS/HR Diphenhydramine HCl 50 mg Q8HP PRN IV 09/18/24 11:15 09/19/24 10:17 50 MG Enoxaparin Sodium 40 mg DAILY SC 09/20/24 10:00 Laboratory Results Laboratory Tests 09/16/24 03:45 09/19/24 05:34 Urinalysis Test 09/15/24 11:12 Urine Color Colorless (Yellow) Urine Clarity Clear (Clear) Urine pH 5.0 (5.0-9.0) Urine Specific [place] 1.007 (1.001-1.035) Urine Protein Negative (Negative) Urine Ketones Negative (Negative) Urine Blood Negative /uL (Negative) Urine Nitrite Negative (Negative) Urine Bilirubin Negative (Negative) Urine Urobilinogen Normal mg/dL (Negative) Urine Leukocyte Esterase Negative /uL (Negative) Urine RBC 1 /hpf (0 - 4) Urine WBC 1 /hpf (0 - 5) Urine Squamous Epithelial Cells Few /hpf (<5) Urine Bacteria Few /hpf (None Seen) H Urine Glucose 3+ mg/dL (Normal) H Microbiology Microbiology Date/Time Source Procedure Growth Status 09/16/24 22:28 Nose MRSA Screen - Final Complete 09/16/24 14:27 Sputum Gram Stain - Final Resulted 09/16/24 14:27 Sputum Respiratory Culture - Preliminary Resulted 09/15/24 11:12 Voided Urine Urine Culture - Final Complete 09/14/24 22:27 Blood Blood Culture - Preliminary NO GROWTH AFTER 72 HOURS OF INCUBATION. Resulted Labs and/or images reviewed: Labs reviewed by me, Image(s) reviewed by me Assessment/Plan Assessment/Plan Covering for Dr. Erwin Multilobar Pneumonia, unspecified organisms continue Rocephin vancomycin, pulmonary consult by Dr. Funes appreciated Generalized weakness Hyperglycemia Elevated D-dimer Sepsis, unspecified organism Shock, resolved Acute respiratory failure with hypoxia Allergic reaction to IV antibiotic azithromycin which was discontinued Dad at the bedside Plan discussed with: Patient Date of Service: Sep 19, 2024 Billing Provider: DORON ALEXANDER MD Common Visit Codes: [id number] INP/OBS CARE(HIGH) DORON ALEXANDER MD Sep 19, 2024 11:18
--- NOTE | 2024-09-19 21:23 | DVHPN2 ---
Progress Note - Dictate Date Seen: Sep 19, 2024 Medical Necessity Reason Pt with a Central, PICC or Fol: No Subjective Patient seen and examined at bedside. Remains on supplemental oxygen Overnight events reviewed. vital signs Vital Sign Date Time Temp Pulse Resp B/P (MAP) Pulse Ox O2 Delivery O2 Flow Rate FiO2 09/19/24 17:00 97.9 103 18 112/71 (85) 97 97.9 09/19/24 14:55 Nasal Cannula* 1 24 Total Intake and Output 09/18/24 09/18/24 09/19/24 15:00 23:00 07:00 Intake Total 290 ml 1530 ml 240 ml Balance 290 ml 1530 ml 240 ml medications Current Medications Medications Dose Ordered Sig/Yayo Route Start Time Stop Time Status Last Admin Dose Admin Ipratropium [place] 0.5 mg Q4HPRN PRN NEB 09/15/24 04:00 09/19/24 14:55 0.5 MG Acetaminophen/ Hydrocodone Bitart 1 tab Q4HP PRN PO 09/15/24 04:00 09/16/24 18:20 1 TAB Ondansetron HCl 4 mg Q4HP PRN IV 09/15/24 04:00 09/17/24 11:02 4 MG Docusate Sodium 100 mg BIDPRN PRN PO 09/15/24 04:00 Nitroglycerin 0.4 mg Q5MINP PRN SL 09/15/24 04:00 Morphine Sulfate 2 mg Q30M PRN IV 09/15/24 04:00 Famotidine 20 mg Q12HR IV 09/15/24 10:00 09/19/24 10:17 20 MG Ceftriaxone Sodium 50 ml @ 100 mls/hr DAILY@09 IV 09/16/24 09:00 09/19/24 10:17 100 MLS/HR Vancomycin HCl 0 ml @ 0 mls/hr UD IV 09/15/24 10:45 Sodium Chloride 1,000 ml @ 100 mls/hr Q10H IV 09/15/24 13:30 09/19/24 18:24 100 MLS/HR Levalbuterol HCl 0.625 mg Q8HR NEB 09/15/24 22:00 09/19/24 14:55 0.625 MG Ibuprofen 600 mg Q8HP PRN PO 09/16/24 20:45 09/19/24 18:24 600 MG Guaifenesin/ Dextromethorphan 10 ml Q4HP PRN PO 09/16/24 20:45 09/18/24 00:07 10 ML Acetaminophen 650 mg Q6HP PRN PO 09/16/24 22:30 09/18/24 13:07 650 MG Vancomycin HCl 300 ml @ 200 mls/hr Q8H IV 09/17/24 12:00 09/19/24 12:37 200 MLS/HR Diphenhydramine HCl 50 mg Q8HP PRN IV 09/18/24 11:15 09/19/24 10:17 50 MG Enoxaparin Sodium 40 mg DAILY SC 09/20/24 10:00 objective Gen.: Patient lying in bed in no apparent distress. On supplemental oxygen. Head: Normocephalic, atraumatic. Eyes: EOMI/PERRLA. Ears: Normal hearing. Normal anatomy. Neck/trachea: Trachea midline, supple. Nose: Normal external anatomy. Mouth: Moist mucous membranes. Chest: Decreased air entry bilaterally. No wheezing or rhonchi. Cardiovascular: Positive S1, positive S2. Regular rate and rhythm. Abdomen: Positive bowel sounds in all 4 quadrants. Soft, non-tender, non- distended. : Deferred. Rectal: Deferred. Skin: Warm, dry. Intact. Extremities: 2+ radial pulses bilaterally. No lower extremity edema. Neuro: Awake, alert, oriented x3. No gross motor or sensory deficits. Cranial nerves II through XII intact. Gait not assessed. laboratory and microbiology Laboratory Tests 09/19/24 05:34 09/16/24 03:45 Test 09/16/24 03:45 Range/Units Serum Glucose 100 74-106 mg/dL Assessment/Plan Impression: Acute hypoxic respiratory failure Multifocal pneumonia Sepsis Elevated D-dimer Shock Events: Remains on supplemental oxygen, 2 LPM NC Taper O2 as tolerated Patient desaturates with exertion. Continue bronchodilators Continue antibiotics Incentive spirometry Antitussive PRN cough. WBC trending down, 24.1 K --> 19.1 K. Repeat lactic acid. DVT prophylaxis - Started Lovenox, SUE hose. Labs and imaging reviewed. Rest of plan as noted below. Plan: CT chest notable for findings of multifocal pneumonia Supplemental oxygen Titrate to keep O2 sats above 92%. Off pressors, hemodynamically stable. Continue bronchodilators. Continue antibiotics Monitor renal function. Monitor electrolytes. Supplement as necessary. Monitor ins and outs. DVT prophylaxis. Prognosis: Guarded given patient's multiple co-morbidities. Rest of plan per hospitalist and other consultants. A total of 51 minutes of clinical care time was spent reviewing the patient record, examining the patient, making a diagnostic and therapeutic plan, discussing this plan with the medical personnel, following up on diagnostic studies and following the patient for clinical stability excluding any and all procedures. At least 50% of this time was spent in direct, [id number] contact. Thank you, Marty Camacho DNP, for allowing me to participate in this patient's care. Further recommendations will depend on the patient's clinical course. Please do not hesitate to contact me if you have any questions or concerns. This medical document was created using an electronic medical record system with [employer] dictation system. Although these documentations are being carefully reviewed, there may still be some phonetic and typographical changes. The errors are purely typographical, due to imperfection on the software program, and do not reflect any compromise in the patient's medical care. Plan discussed with: Patient, Other (CHINYERE Lemon) JOHN HUERTA MD Sep 19, 2024 21:23
[2024-09-20] VITALS (14 sets, daily range): BP systolic 118–128; BP diastolic 70–79; PULSE 67–103; RESP 15–20; TEMP 97.6–99.4; O2SAT 94–100
--- NOTE | 2024-09-20 05:38 | DVH ---
CHEST RADIOGRAPH Indication: interval changes in pneumonia. Technique: Single frontal view of the chest was obtained COMPARISON: XY CHEST PORTABLE on DOS: 09/16/24, XY CHEST PORTABLE on DOS: 09/14/24 FINDINGS: Lines and Tubes: None Lungs: Unchanged multifocal airspace disease. Pleura: Possible small left pleural effusion No pneumothorax. Cardiomediastinal contours: Unremarkable Bones: Unremarkable IMPRESSION: Unchanged multifocal airspace disease. Possible small left pleural effusion.
--- NOTE | 2024-09-20 08:48 | DVHPN2 ---
Reviewed: Care Plan, H&P, Labs, Medications, Previous Orders, Radiology Changes from previous H/P or p: No Changes Respiratory: Shortness of breath, Other Objective Vitals Vital Signs Date Time Temp Pulse Resp B/P (MAP) Pulse Ox O2 Delivery O2 Flow Rate FiO2 09/20/24 06:38 75 18 100 09/20/24 06:33 Room Air 0.0 09/20/24 06:33 21 09/20/24 05:00 97.7 124/77 (93) 97.7 Intake/Output Intake and Output 09/20/24 07:00 Intake Total 2930 ml Output Total 803 ml Balance 2127 ml Intake Oral 2480 ml IV Total 450 ml Output Urine Total 803 ml # Bowel Movements 5 General Appearance: Alert, Oriented X3, Cooperative, No acute distress HEENT: Atraumatic Lungs: Other (Few crackles bilateral lungs with moderate to good air entry) Cardiovascular: Other (Borderline tachycardia at this time) Abdomen: Normal bowel sounds, Soft, No tenderness Extremities: No edema Skin: Other (hives) Medications Current Medications Medications Dose Ordered Sig/Yayo Route Start Time Stop Time Status Last Admin Dose Admin Ipratropium [place] 0.5 mg Q4HPRN PRN NEB 09/15/24 04:00 09/20/24 06:33 0.5 MG Acetaminophen/ Hydrocodone Bitart 1 tab Q4HP PRN PO 09/15/24 04:00 09/16/24 18:20 1 TAB Ondansetron HCl 4 mg Q4HP PRN IV 09/15/24 04:00 09/17/24 11:02 4 MG Docusate Sodium 100 mg BIDPRN PRN PO 09/15/24 04:00 Nitroglycerin 0.4 mg Q5MINP PRN SL 09/15/24 04:00 Morphine Sulfate 2 mg Q30M PRN IV 09/15/24 04:00 Famotidine 20 mg Q12HR IV 09/15/24 10:00 09/19/24 21:31 20 MG Ceftriaxone Sodium 50 ml @ 100 mls/hr DAILY@09 IV 09/16/24 09:00 09/19/24 10:17 100 MLS/HR Vancomycin HCl 0 ml @ 0 mls/hr UD IV 09/15/24 10:45 Sodium Chloride 1,000 ml @ 100 mls/hr Q10H IV 09/15/24 13:30 09/19/24 18:24 100 MLS/HR Levalbuterol HCl 0.625 mg Q8HR NEB 09/15/24 22:00 09/20/24 06:33 0.625 MG Ibuprofen 600 mg Q8HP PRN PO 09/16/24 20:45 09/19/24 18:24 600 MG Guaifenesin/ Dextromethorphan 10 ml Q4HP PRN PO 09/16/24 20:45 09/20/24 02:04 10 ML Acetaminophen 650 mg Q6HP PRN PO 09/16/24 22:30 09/18/24 13:07 650 MG Vancomycin HCl 300 ml @ 200 mls/hr Q8H IV 09/17/24 12:00 09/20/24 04:29 200 MLS/HR Diphenhydramine HCl 50 mg Q8HP PRN IV 09/18/24 11:15 09/19/24 10:17 50 MG Enoxaparin Sodium 40 mg DAILY SC 09/20/24 10:00 Laboratory Results Laboratory Tests 09/16/24 03:45 09/19/24 05:34 Urinalysis Test 09/15/24 11:12 Urine Color Colorless (Yellow) Urine Clarity Clear (Clear) Urine pH 5.0 (5.0-9.0) Urine Specific [place] 1.007 (1.001-1.035) Urine Protein Negative (Negative) Urine Ketones Negative (Negative) Urine Blood Negative /uL (Negative) Urine Nitrite Negative (Negative) Urine Bilirubin Negative (Negative) Urine Urobilinogen Normal mg/dL (Negative) Urine Leukocyte Esterase Negative /uL (Negative) Urine RBC 1 /hpf (0 - 4) Urine WBC 1 /hpf (0 - 5) Urine Squamous Epithelial Cells Few /hpf (<5) Urine Bacteria Few /hpf (None Seen) H Urine Glucose 3+ mg/dL (Normal) H Microbiology Microbiology Date/Time Source Procedure Growth Status 09/16/24 22:28 Nose MRSA Screen - Final Complete 09/16/24 14:27 Sputum Gram Stain - Final Complete 09/16/24 14:27 Sputum Respiratory Culture - Final Complete 09/15/24 11:12 Voided Urine Urine Culture - Final Complete 09/14/24 22:27 Blood Blood Culture - Final NO GROWTH AFTER 5 DAYS OF INCUBATION. Complete Labs and/or images reviewed: Labs reviewed by me, Image(s) reviewed by me Assessment/Plan Assessment/Plan Covering for Dr. Erwin Acute hypoxic respiratory failure secondary to pneumonia improved now on room air Multilobar Pneumonia, unspecified organisms continue Rocephin vancomycin, pulmonary consult by Dr. Funes appreciated Generalized weakness Hyperglycemia Elevated D-dimer Sepsis, unspecified organism Shock, resolved Acute respiratory failure with hypoxia Allergic reaction to IV antibiotic azithromycin which was discontinued Dad at the bedside Plan discussed with: Patient Date of Service: Sep 20, 2024 Billing Provider: DORON ALEXANDER MD Common Visit Codes: [id number] INP/OBS CARE(HIGH) DORON ALEXANDER MD Sep 20, 2024 08:48
[2024-09-20] MEDS: ENOXAPARIN SOD 40 MG/0.4 ML SYRINGE SC SCH (10:00)
--- NOTE | 2024-09-20 12:37 | DVH ---
US CHEST ULTRASOUND, HISTORY: Eval if any left pleural effusion present. COMPARISON(S): None TECHNICAL DATA: Transverse and longitudinal images are obtained of the chest. FINDING: IMPRESSION(S): Small bilateral pleural effusion.
--- NOTE | 2024-09-20 20:43 | DVHPN2 ---
Progress Note - Dictate Date Seen: Sep 20, 2024 Medical Necessity Reason Pt with a Central, PICC or Fol: No Subjective Patient seen and examined at bedside. Breathing on room air. Overnight events reviewed. vital signs Vital Sign Date Time Temp Pulse Resp B/P (MAP) Pulse Ox O2 Delivery O2 Flow Rate FiO2 09/20/24 17:00 99.3 103 17 125/79 (94) 94 99.3 09/20/24 14:34 Room Air 0.0 09/20/24 14:34 21 Total Intake and Output 09/19/24 09/19/24 09/20/24 15:00 23:00 07:00 Intake Total 950 ml 1180 ml 800 ml Output Total 800 ml 3 ml Balance 950 ml 380 ml 797 ml medications Current Medications Medications Dose Ordered Sig/Yayo Route Start Time Stop Time Status Last Admin Dose Admin Ipratropium [place] 0.5 mg Q4HPRN PRN NEB 09/15/24 04:00 09/20/24 14:34 0.5 MG Acetaminophen/ Hydrocodone Bitart 1 tab Q4HP PRN PO 09/15/24 04:00 09/16/24 18:20 1 TAB Ondansetron HCl 4 mg Q4HP PRN IV 09/15/24 04:00 09/17/24 11:02 4 MG Docusate Sodium 100 mg BIDPRN PRN PO 09/15/24 04:00 Nitroglycerin 0.4 mg Q5MINP PRN SL 09/15/24 04:00 Morphine Sulfate 2 mg Q30M PRN IV 09/15/24 04:00 Famotidine 20 mg Q12HR IV 09/15/24 10:00 09/20/24 10:25 20 MG Ceftriaxone Sodium 50 ml @ 100 mls/hr DAILY@09 IV 09/16/24 09:00 09/20/24 10:25 100 MLS/HR Vancomycin HCl 0 ml @ 0 mls/hr UD IV 09/15/24 10:45 Sodium Chloride 1,000 ml @ 100 mls/hr Q10H IV 09/15/24 13:30 09/20/24 13:35 100 MLS/HR Levalbuterol HCl 0.625 mg Q8HR NEB 09/15/24 22:00 09/20/24 14:34 0.625 MG Ibuprofen 600 mg Q8HP PRN PO 09/16/24 20:45 09/19/24 18:24 600 MG Guaifenesin/ Dextromethorphan 10 ml Q4HP PRN PO 09/16/24 20:45 09/20/24 02:04 10 ML Acetaminophen 650 mg Q6HP PRN PO 09/16/24 22:30 09/18/24 13:07 650 MG Diphenhydramine HCl 50 mg Q8HP PRN IV 09/18/24 11:15 09/20/24 10:25 50 MG Enoxaparin Sodium 40 mg DAILY SC 09/20/24 10:00 Vancomycin HCl 250 ml @ 200 mls/hr Q10H IV 09/21/24 00:00 objective Gen.: Patient lying in bed in no apparent distress. On room air Head: Normocephalic, atraumatic. Eyes: EOMI/PERRLA. Ears: Normal hearing. Normal anatomy. Neck/trachea: Trachea midline, supple. Nose: Normal external anatomy. Mouth: Moist mucous membranes. Chest: Decreased air entry bilaterally. No wheezing or rhonchi. Cardiovascular: Positive S1, positive S2. Regular rate and rhythm. Abdomen: Positive bowel sounds in all 4 quadrants. Soft, non-tender, non- distended. : Deferred. Rectal: Deferred. Skin: Warm, dry. Intact. Extremities: 2+ radial pulses bilaterally. No lower extremity edema. Neuro: Awake, alert, oriented x3. No gross motor or sensory deficits. Cranial nerves II through XII intact. Gait not assessed. laboratory and microbiology Laboratory Tests 09/19/24 05:34 09/16/24 03:45 Test 09/16/24 03:45 Range/Units Serum Glucose 100 74-106 mg/dL Assessment/Plan Impression: Acute hypoxic respiratory failure Multifocal pneumonia Sepsis Elevated D-dimer Shock Events: Tapered off O2, breathing on room air. No respiratory distress Chest x-ray reviewed, notable for multifocal opacities. Possible small left pleural effusion. Limited chest ultrasound will be performed to evaluate if left pleural effusion amenable for thoracentesis. Continue bronchodilators Continue antibiotics Incentive spirometry Antitussive PRN cough. Pain control Avoid oversedation Lactic acid of 0.8. Patient is feeling better. O2 requirements improving. Labs and imaging reviewed. Rest of plan as noted below. Plan: CT chest notable for findings of multifocal pneumonia Supplemental oxygen PRN Titrate to keep O2 sats above 92%. Off pressors, hemodynamically stable. Continue bronchodilators. Continue antibiotics Monitor renal function. Monitor electrolytes. Supplement as necessary. Monitor ins and outs. DVT prophylaxis. Prognosis: Guarded given patient's multiple co-morbidities. Rest of plan per hospitalist and other consultants. A total of 51 minutes of clinical care time was spent reviewing the patient record, examining the patient, making a diagnostic and therapeutic plan, discussing this plan with the medical personnel, following up on diagnostic studies and following the patient for clinical stability excluding any and all procedures. At least 50% of this time was spent in direct, [id number] contact. Thank you, Marty Camacho DNP, for allowing me to participate in this patient's care. Further recommendations will depend on the patient's clinical course. Please do not hesitate to contact me if you have any questions or concerns. This medical document was created using an electronic medical record system with [employer] computerized dictation system. Although these documentations are being carefully reviewed, there may still be some phonetic and typographical changes. The errors are purely typographical, due to imperfection on the software program, and do not reflect any compromise in the patient's medical care. Plan discussed with: Patient, Other (CHINYERE Lemon) JOHN HUERTA MD Sep 20, 2024 20:43
[2024-09-21] VITALS (15 sets, daily range): BP systolic 115–129; BP diastolic 71–91; PULSE 68–134; RESP 16–19; TEMP 98.2–99.7; O2SAT 92–100
[2024-09-21] MEDS: VANCOMYCIN 1.25GM/250ML 250 ML IV SCH
[2024-09-21 06:33] LABS: Magnesium 1.9 mg/dL (1.6-2.6)
[2024-09-21 06:34] LABS: Phosphorus 3.2 mg/dL (2.4-5.1)
[2024-09-21 06:37] LABS: Albumin 3.3 g/dL (3.2-4.8); Alkaline Phosphatase 70 U/L (46-116); Anion Gap 8 (5-15); Aspartate Aminotransferase 33 U/L (13-40); Calcium 8.9 mg/dL (8.7-10.4); Carbon Dioxide 25 mmol/L (20-31); Chloride 105 mmol/L (98-107); Glucose 87 mg/dL (74-106); Sodium 138 mmol/L (136-145); Total Protein 5.9 g/dL (5.7-8.2)
[2024-09-21 06:48] LABS: INR 1.09 (0.9-1.15); Prothrombin Time 11.5 sec (9.3-11.8)
[2024-09-21 06:55] LABS: Hematocrit 31.8 % (36.0-46.0); Hemoglobin 10.6 g/dL (12.2-16.2); Mean Corpuscular Hemoglobin 23.7 pg (28.0-32.0); Mean Corpuscular Hgb Conc. 33.2 g/dL (32.0-36.0); Mean Corpuscular Volume 71.2 fL (80.0-100.0); Platelet Count (auto) 498 10^3/uL (140-450); Red Blood Cells 4.47 10^6/uL (4.0-5.20); Red Cell Distribution Width 15.7 % (11.8-14.3); White Blood Cell 13.3 10^3/uL (4.4-10.8)
[2024-09-21 07:16] LABS: Basophils % (manual) 0 (0.0-2.0); Blast Cells 0; Promyelocytes % 0
[2024-09-21 08:48] LABS: BUN/Creatinine Ratio 11.4 (10.0-20.0); Blood Urea Nitrogen < 5 mg/dL (9-23); Potassium 3.2 mmol/L (3.5-5.1)
[2024-09-21 08:49] LABS: Alanine Aminotransferase 51 U/L (7-40); Bilirubin, Total 0.2 mg/dL (0.2-1.0)
--- NOTE | 2024-09-21 09:29 | DVHPN2 ---
Reviewed: Care Plan, H&P, Labs, Medications, Previous Orders, Radiology Changes from previous H/P or p: No Changes Respiratory: Shortness of breath, Other Objective Vitals Vital Signs Date Time Temp Pulse Resp B/P (MAP) Pulse Ox O2 Delivery O2 Flow Rate FiO2 09/21/24 06:18 68 16 100 09/21/24 06:12 Room Air 0.0 09/21/24 06:12 21 09/21/24 05:00 98.2 127/91 (103) 98.2 Intake/Output Intake and Output 09/21/24 07:00 Intake Total 2820 ml Output Total 3 ml Balance 2817 ml Intake Oral 1320 ml IV Total 1500 ml Output Urine Total 3 ml # Voids 3 # Bowel Movements 1 General Appearance: Alert, Oriented X3, Cooperative, No acute distress HEENT: Atraumatic Lungs: Other (Few crackles bilateral lungs with moderate to good air entry) Cardiovascular: Other (Borderline tachycardia at this time) Abdomen: Normal bowel sounds, Soft, No tenderness Extremities: No edema Skin: Other (hives) Medications Current Medications Medications Dose Ordered Sig/Yayo Route Start Time Stop Time Status Last Admin Dose Admin Ipratropium [place] 0.5 mg Q4HPRN PRN NEB 09/15/24 04:00 09/20/24 22:24 0.5 MG Acetaminophen/ Hydrocodone Bitart 1 tab Q4HP PRN PO 09/15/24 04:00 09/16/24 18:20 1 TAB Ondansetron HCl 4 mg Q4HP PRN IV 09/15/24 04:00 09/17/24 11:02 4 MG Docusate Sodium 100 mg BIDPRN PRN PO 09/15/24 04:00 Nitroglycerin 0.4 mg Q5MINP PRN SL 09/15/24 04:00 Morphine Sulfate 2 mg Q30M PRN IV 09/15/24 04:00 Famotidine 20 mg Q12HR IV 09/15/24 10:00 09/21/24 09:05 20 MG Ceftriaxone Sodium 50 ml @ 100 mls/hr DAILY@09 IV 09/16/24 09:00 09/21/24 09:04 100 MLS/HR Vancomycin HCl 0 ml @ 0 mls/hr UD IV 09/15/24 10:45 Sodium Chloride 1,000 ml @ 100 mls/hr Q10H IV 09/15/24 13:30 09/21/24 06:38 100 MLS/HR Levalbuterol HCl 0.625 mg Q8HR NEB 09/15/24 22:00 09/21/24 06:12 0.625 MG Ibuprofen 600 mg Q8HP PRN PO 09/16/24 20:45 09/19/24 18:24 600 MG Guaifenesin/ Dextromethorphan 10 ml Q4HP PRN PO 09/16/24 20:45 09/20/24 02:04 10 ML Acetaminophen 650 mg Q6HP PRN PO 09/16/24 22:30 09/18/24 13:07 650 MG Diphenhydramine HCl 50 mg Q8HP PRN IV 09/18/24 11:15 09/21/24 09:06 50 MG Enoxaparin Sodium 40 mg DAILY SC 09/20/24 10:00 Vancomycin HCl 250 ml @ 200 mls/hr Q10H IV 09/21/24 00:00 09/21/24 00:00 200 MLS/HR Laboratory Results Laboratory Tests 09/21/24 05:42 Chemistry Test 09/21/24 05:42 Albumin 3.3 g/dL (3.2-4.8) Calcium Level 8.9 mg/dL (8.7-10.4) Magnesium Level 1.9 mg/dL (1.6-2.6) Phosphorus Level 3.2 mg/dL (2.4-5.1) Total Protein 5.9 g/dL (5.7-8.2) Coagulation Test 09/21/24 05:42 Prothrombin Time 11.5 sec (9.3-11.8) Prothrombin Time INR 1.09 (0.9-1.15) LFT Test 09/21/24 05:42 Alanine Aminotransferase (ALT) 51 U/L (7-40) H Alkaline Phosphatase 70 U/L (46-116) Aspartate Amino Transferase (AST) 33 U/L (13-40) Total Bilirubin 0.2 mg/dL (0.2-1.0) Urinalysis Test 09/15/24 11:12 Urine Color Colorless (Yellow) Urine Clarity Clear (Clear) Urine pH 5.0 (5.0-9.0) Urine Specific [place] 1.007 (1.001-1.035) Urine Protein Negative (Negative) Urine Ketones Negative (Negative) Urine Blood Negative /uL (Negative) Urine Nitrite Negative (Negative) Urine Bilirubin Negative (Negative) Urine Urobilinogen Normal mg/dL (Negative) Urine Leukocyte Esterase Negative /uL (Negative) Urine RBC 1 /hpf (0 - 4) Urine WBC 1 /hpf (0 - 5) Urine Squamous Epithelial Cells Few /hpf (<5) Urine Bacteria Few /hpf (None Seen) H Urine Glucose 3+ mg/dL (Normal) H Microbiology Microbiology Date/Time Source Procedure Growth Status 09/16/24 22:28 Nose MRSA Screen - Final Complete 09/16/24 14:27 Sputum Gram Stain - Final Complete 09/16/24 14:27 Sputum Respiratory Culture - Final Complete 09/15/24 11:12 Voided Urine Urine Culture - Final Complete 09/14/24 22:27 Blood Blood Culture - Final NO GROWTH AFTER 5 DAYS OF INCUBATION. Complete Labs and/or images reviewed: Labs reviewed by me, Image(s) reviewed by me Assessment/Plan Assessment/Plan Covering for Dr. Erwin Acute hypoxic respiratory failure secondary to pneumonia improved now on room air Multilobar Pneumonia, unspecified organisms continue Rocephin vancomycin, pulmonary consult by Dr. Funes appreciated Generalized weakness Hyperglycemia Elevated D-dimer Sepsis, unspecified organism Shock, resolved Blood cultures negative Respiratory cultures neg Allergic reaction to IV antibiotic azithromycin which was discontinued Mom at the bedside Will DC home if cleared by Dr. Funes Plan discussed with: Patient My Orders Orders - DORON ALEXANDER MD Procedure Category Date Status Time Manual Differential LAB 09/21/24 In Process 05:42 Date of Service: Sep 21, 2024 Billing Provider: DORON ALEXANDER MD Common Visit Codes: [id number] INP/OBS CARE(HIGH) DORON ALEXANDER MD Sep 21, 2024 09:29
[2024-09-21 09:35] LABS: Anisocytosis Slight; Band Neutrophils % (manual) 3; Eosinophils % (manual) 2 (0-7); Hypochromia Slight; Lymphocytes % (manual) 15 (10.0-50.0); Metamyelocytes % 1; Monocytes % (manual) 5 (0-12); Myelocytes % 1; Reactive Lymphocytes 1
[2024-09-21 09:36] LABS: Ovalocytes FEW; Platelet Estimate Increased
[2024-09-21] MEDS: POTASSIUM EFFERVESENT TAB 25 MEQ PO ONE (14:57)
[2024-09-21] MEDS: FUROSEMIDE 20 MG/2 ML VIAL IV ONE (14:57)
--- NOTE | 2024-09-21 22:30 | DVHPN2 ---
Progress Note - Dictate Date Seen: Sep 21, 2024 Medical Necessity Reason Pt with a Central, PICC or Fol: No Subjective Patient seen and examined at bedside. Breathing on room air. Overnight events reviewed. vital signs Vital Sign Date Time Temp Pulse Resp B/P (MAP) Pulse Ox O2 Delivery O2 Flow Rate FiO2 09/21/24 21:50 75 16 99 09/21/24 21:38 Room Air* 0 21 09/21/24 21:00 98.3 126/79 (95) 98.3 Total Intake and Output 09/20/24 09/20/24 09/21/24 15:00 23:00 07:00 Intake Total 50 ml 1370 ml 1400 ml Output Total 3 ml Balance 50 ml 1367 ml 1400 ml medications Current Medications Medications Dose Ordered Sig/Yayo Route Start Time Stop Time Status Last Admin Dose Admin Ipratropium [place] 0.5 mg Q4HPRN PRN NEB 09/15/24 04:00 09/20/24 22:24 0.5 MG Acetaminophen/ Hydrocodone Bitart 1 tab Q4HP PRN PO 09/15/24 04:00 09/16/24 18:20 1 TAB Ondansetron HCl 4 mg Q4HP PRN IV 09/15/24 04:00 09/17/24 11:02 4 MG Docusate Sodium 100 mg BIDPRN PRN PO 09/15/24 04:00 Nitroglycerin 0.4 mg Q5MINP PRN SL 09/15/24 04:00 Morphine Sulfate 2 mg Q30M PRN IV 09/15/24 04:00 Famotidine 20 mg Q12HR IV 09/15/24 10:00 09/21/24 09:05 20 MG Ceftriaxone Sodium 50 ml @ 100 mls/hr DAILY@09 IV 09/16/24 09:00 09/21/24 09:04 100 MLS/HR Vancomycin HCl 0 ml @ 0 mls/hr UD IV 09/15/24 10:45 Sodium Chloride 1,000 ml @ 100 mls/hr Q10H IV 09/15/24 13:30 09/21/24 06:38 100 MLS/HR Levalbuterol HCl 0.625 mg Q8HR NEB 09/15/24 22:00 09/21/24 21:37 0.625 MG Ibuprofen 600 mg Q8HP PRN PO 09/16/24 20:45 09/19/24 18:24 600 MG Guaifenesin/ Dextromethorphan 10 ml Q4HP PRN PO 09/16/24 20:45 09/20/24 02:04 10 ML Acetaminophen 650 mg Q6HP PRN PO 09/16/24 22:30 09/18/24 13:07 650 MG Diphenhydramine HCl 50 mg Q8HP PRN IV 09/18/24 11:15 09/21/24 09:06 50 MG Enoxaparin Sodium 40 mg DAILY SC 09/20/24 10:00 Vancomycin HCl 250 ml @ 200 mls/hr Q10H IV 09/21/24 00:00 09/21/24 00:00 200 MLS/HR objective Gen.: Patient lying in bed in no apparent distress. On room air Head: Normocephalic, atraumatic. Eyes: EOMI/PERRLA. Ears: Normal hearing. Normal anatomy. Neck/trachea: Trachea midline, supple. Nose: Normal external anatomy. Mouth: Moist mucous membranes. Chest: Decreased air entry bilaterally. No wheezing or rhonchi. Cardiovascular: Positive S1, positive S2. Regular rate and rhythm. Abdomen: Positive bowel sounds in all 4 quadrants. Soft, non-tender, non- distended. : Deferred. Rectal: Deferred. Skin: Warm, dry. Intact. Extremities: 2+ radial pulses bilaterally. No lower extremity edema. Neuro: Awake, alert, oriented x3. No gross motor or sensory deficits. Cranial nerves II through XII intact. Gait not assessed. laboratory and microbiology Laboratory Tests 09/21/24 05:42 Test 09/21/24 05:42 Range/Units Serum Glucose 87 74-106 mg/dL Assessment/Plan Impression: Acute hypoxic respiratory failure Multifocal pneumonia Sepsis Elevated D-dimer Shock Events: Breathing on room air. No respiratory distress Supplemental O2 PRN WBC trending down. Limited chest ultrasound demonstrated small bilateral pleural effusions. Obtain CXR in the AM to assess for interval changes. Continue antibiotics Incentive spirometry Antitussive PRN cough. Patient on room air while at rest. Lasix 20 mg IVP x1 given Monitor renal function Monitor electrolytes. Supplement as necessary. Potassium supplementation Pain control Avoid oversedation Monitor Lactic acid. Obtain BMP in the AM. Labs and imaging reviewed. Rest of plan as noted below. Plan: CT chest notable for findings of multifocal pneumonia Supplemental oxygen PRN Titrate to keep O2 sats above 92%. Off pressors, hemodynamically stable. Continue bronchodilators. Continue antibiotics Monitor renal function. Monitor electrolytes. Supplement as necessary. Monitor ins and outs. DVT prophylaxis. Prognosis: Guarded given patient's multiple co-morbidities. Rest of plan per hospitalist and other consultants. A total of 51 minutes of clinical care time was spent reviewing the patient record, examining the patient, making a diagnostic and therapeutic plan, discussing this plan with the medical personnel, following up on diagnostic studies and following the patient for clinical stability excluding any and all procedures. At least 50% of this time was spent in direct, [id number] contact. Thank you, Marty Camacho DNP, for allowing me to participate in this patient's care. Further recommendations will depend on the patient's clinical course. Please do not hesitate to contact me if you have any questions or concerns. This medical document was created using an electronic medical record system with [employer] computerized dictation system. Although these documentations are being carefully reviewed, there may still be some phonetic and typographical changes. The errors are purely typographical, due to imperfection on the software program, and do not reflect any compromise in the patient's medical care. Plan discussed with: Patient, Other (CHINYERE Subramanian) JOHN HUERTA MD Sep 21, 2024 22:30
[2024-09-22] VITALS (8 sets, daily range): BP systolic 114–125; BP diastolic 66–75; PULSE 90–102; RESP 15–18; TEMP 98.3–98.9; O2SAT 95–99
[2024-09-22 05:39] LABS: Hemoglobin 10.2 g/dL (12.2-16.2); Red Cell Distribution Width 15.5 % (11.8-14.3)
[2024-09-22 05:41] LABS: Hematocrit 30.7 % (36.0-46.0); Mean Corpuscular Hemoglobin 23.6 pg (28.0-32.0); Mean Corpuscular Hgb Conc. 33.2 g/dL (32.0-36.0); Mean Corpuscular Volume 71.2 fL (80.0-100.0); Platelet Count (auto) 594 10^3/uL (140-450); Red Blood Cells 4.31 10^6/uL (4.0-5.20); White Blood Cell 11.9 10^3/uL (4.4-10.8)
[2024-09-22 05:44] LABS: Basophils % (manual) 0 (0.0-2.0); Blast Cells 0; Eosinophils % (manual) 0 (0-7); Metamyelocytes % 0; Myelocytes % 0; Promyelocytes % 0; Reactive Lymphocytes 0
[2024-09-22 08:43] LABS: Band Neutrophils % (manual) 3; Lymphocytes % (manual) 20 (10.0-50.0); Monocytes % (manual) 7 (0-12)
[2024-09-22 08:44] LABS: Platelet Estimate Increased
[2024-09-22] MEDS ORDERED: CEFD300C2 PO (10:04)
--- NOTE | 2024-09-22 10:05 | DVHPN2 ---
Reviewed: Care Plan, H&P, Labs, Medications, Previous Orders, Radiology Changes from previous H/P or p: No Changes Respiratory: Shortness of breath, Other Objective Vitals Vital Signs Date Time Temp Pulse Resp B/P (MAP) Pulse Ox O2 Delivery O2 Flow Rate FiO2 09/22/24 09:00 98.5 97 16 122/69 (86) 97 98.5 09/22/24 07:30 Room Air* 0 21 Intake/Output Intake and Output 09/22/24 07:00 Intake Total 2640 ml Balance 2640 ml Intake Oral 2590 ml IV Total 50 ml # Voids 7 # Bowel Movements 3 General Appearance: Alert, Oriented X3, Cooperative, No acute distress HEENT: Atraumatic Lungs: Other (Few crackles bilateral lungs with moderate to good air entry) Cardiovascular: Other (Borderline tachycardia at this time) Abdomen: Normal bowel sounds, Soft, No tenderness Extremities: No edema Skin: Other (hives) Medications Current Medications Medications Dose Ordered Sig/Yayo Route Start Time Stop Time Status Last Admin Dose Admin Ipratropium [place] 0.5 mg Q4HPRN PRN NEB 09/15/24 04:00 09/20/24 22:24 0.5 MG Acetaminophen/ Hydrocodone Bitart 1 tab Q4HP PRN PO 09/15/24 04:00 09/16/24 18:20 1 TAB Ondansetron HCl 4 mg Q4HP PRN IV 09/15/24 04:00 09/17/24 11:02 4 MG Docusate Sodium 100 mg BIDPRN PRN PO 09/15/24 04:00 Nitroglycerin 0.4 mg Q5MINP PRN SL 09/15/24 04:00 Morphine Sulfate 2 mg Q30M PRN IV 09/15/24 04:00 Famotidine 20 mg Q12HR IV 09/15/24 10:00 09/21/24 09:05 20 MG Ceftriaxone Sodium 50 ml @ 100 mls/hr DAILY@09 IV 09/16/24 09:00 09/21/24 09:04 100 MLS/HR Vancomycin HCl 0 ml @ 0 mls/hr UD IV 09/15/24 10:45 Sodium Chloride 1,000 ml @ 100 mls/hr Q10H IV 09/15/24 13:30 09/21/24 06:38 100 MLS/HR Levalbuterol HCl 0.625 mg Q8HR NEB 09/15/24 22:00 09/22/24 07:30 0.625 MG Ibuprofen 600 mg Q8HP PRN PO 09/16/24 20:45 09/19/24 18:24 600 MG Guaifenesin/ Dextromethorphan 10 ml Q4HP PRN PO 09/16/24 20:45 09/20/24 02:04 10 ML Acetaminophen 650 mg Q6HP PRN PO 09/16/24 22:30 09/18/24 13:07 650 MG Diphenhydramine HCl 50 mg Q8HP PRN IV 09/18/24 11:15 09/21/24 09:06 50 MG Enoxaparin Sodium 40 mg DAILY SC 09/20/24 10:00 Vancomycin HCl 250 ml @ 200 mls/hr Q10H IV 09/21/24 00:00 09/21/24 00:00 200 MLS/HR Laboratory Results Laboratory Tests 09/21/24 05:42 09/22/24 05:25 Urinalysis Test 09/15/24 11:12 Urine Color Colorless (Yellow) Urine Clarity Clear (Clear) Urine pH 5.0 (5.0-9.0) Urine Specific [place] 1.007 (1.001-1.035) Urine Protein Negative (Negative) Urine Ketones Negative (Negative) Urine Blood Negative /uL (Negative) Urine Nitrite Negative (Negative) Urine Bilirubin Negative (Negative) Urine Urobilinogen Normal mg/dL (Negative) Urine Leukocyte Esterase Negative /uL (Negative) Urine RBC 1 /hpf (0 - 4) Urine WBC 1 /hpf (0 - 5) Urine Squamous Epithelial Cells Few /hpf (<5) Urine Bacteria Few /hpf (None Seen) H Urine Glucose 3+ mg/dL (Normal) H Microbiology Microbiology Date/Time Source Procedure Growth Status 09/16/24 22:28 Nose MRSA Screen - Final Complete 09/16/24 14:27 Sputum Gram Stain - Final Complete 09/16/24 14:27 Sputum Respiratory Culture - Final Complete 09/15/24 11:12 Voided Urine Urine Culture - Final Complete 09/14/24 22:27 Blood Blood Culture - Final NO GROWTH AFTER 5 DAYS OF INCUBATION. Complete Labs and/or images reviewed: Labs reviewed by me, Image(s) reviewed by me Assessment/Plan Assessment/Plan Covering for Dr. Erwin Acute hypoxic respiratory failure secondary to pneumonia improved now on room air Multilobar Pneumonia, unspecified organisms continue Rocephin vancomycin, pulmonary consult by Dr. Funes appreciated Dr. Funes advised to discharge the patient on cefdinir 300 mg p.o. b.i.d. for seven days Generalized weakness Hyperglycemia Elevated D-dimer Sepsis, unspecified organism Shock, resolved Blood cultures negative Respiratory cultures neg Plan discussed with: Patient Date of Service: Sep 22, 2024 Billing Provider: DORON ALEXANDER MD Common Visit Codes: [id number] INP/OBS CARE(HIGH) DORON ALEXANDER MD Sep 22, 2024 10:05
--- NOTE | 2024-09-22 10:11 | DVHDS2 ---
Discharge Summary Date of Admission Sep 15, 2024 at 03:52 Date of Discharge: Sep 22, 2024 Admitting Diagnosis Shortness of breath Wounds: None Labs/Diagnostic Data: Laboratory Results Test 09/22/24 05:25 09/21/24 05:42 09/20/24 06:03 09/18/24 05:45 White Blood Count 11.9 10^3/uL (4.4-10.8) Red Blood Count 4.31 10^6/uL (4.0-5.20) Hemoglobin 10.2 g/dL (12.2-16.2) Hematocrit 30.7 % (36.0-46.0) Mean Corpuscular Volume 71.2 fL (80.0-100.0) Mean Corpuscular Hemoglobin 23.6 pg (28.0-32.0) Mean Corpuscular Hemoglobin Concent 33.2 g/dL (32.0-36.0) Red Cell Distribution Width 15.5 % (11.8-14.3) Platelet Count 594 10^3/uL (140-450) Mean Platelet Volume 6.2 fL (6.9-10.8) Neutrophils (%) (Auto) % (37.0-80.0) Lymphocytes (%) (Auto) % (10.0-50.0) Monocytes (%) (Auto) % (0.0-12.0) Basophils (%) (Auto) % (0.0-2.0) Neutrophils # (Auto) 10 ^3/uL (1.6-8.6) Lymphocytes # (Auto) 10 ^3/uL (0.4-5.4) Monocytes # (Auto) 10 ^3/uL (0-1.3) Differential Total Cells Counted 100.0 (100) Neutrophils % (Manual) 70 (37.0-80.0) Band Neutrophils % (Manual) 3 Lymphocytes % (Manual) 20 (10.0-50.0) Monocytes % (Manual) 7 (0-12) Eosinophils % (Manual) 0 (0-7) Basophils % (Manual) 0 (0.0-2.0) Metamyelocytes % (manual) 0 Myelocytes % (Manual) 0 Promyelocytes % (Manual) 0 Blast Cells % (Manual) 0 Reactive Lymphocytes 0 Platelet Estimate Increased Creatinine 0.47 mg/dL (0.550-1.02) Glomerular Filtration Rate Calc 139 mL/min (>90) Vancomycin Level Trough < 3.0 ug/mL (5-10) Hypochromasia (manual) Slight Anisocytosis (manual) Slight Microcytosis Slight Ovalocytes Few Prothrombin Time 11.5 sec (9.3-11.8) Prothrombin Time INR 1.09 (0.9-1.15) Sodium Level 138 mmol/L (136-145) Potassium Level 3.2 mmol/L (3.5-5.1) Chloride Level 105 mmol/L (98-107) Carbon Dioxide Level 25 mmol/L (20-31) Anion Gap 8 (5-15) Blood Urea Nitrogen < 5 mg/dL (9-23) BUN/Creatinine Ratio 11.4 (10.0-20.0) Serum Glucose 87 mg/dL (74-106) Calcium Level 8.9 mg/dL (8.7-10.4) Phosphorus Level 3.2 mg/dL (2.4-5.1) Magnesium Level 1.9 mg/dL (1.6-2.6) Total Bilirubin 0.2 mg/dL (0.2-1.0) Aspartate Amino Transferase (AST) 33 U/L (13-40) Alanine Aminotransferase (ALT) 51 U/L (7-40) Alkaline Phosphatase 70 U/L (46-116) Total Protein 5.9 g/dL (5.7-8.2) Albumin 3.3 g/dL (3.2-4.8) Lactic Acid Level 0.8 mmol/L (0.4-2.0) Smudge Cells 1 /100 WBC Test 09/16/24 03:45 09/15/24 11:12 09/15/24 05:00 09/15/24 03:50 Eosinophils (%) (Auto) 0.1 % (0.0-7.0) Eosinophils # (Auto) 0 10 ^3/uL (0-0.8) Basophils # (Auto) 0 10 ^3/uL (0-0.2) Nucleated Red Blood Cells 0.0 % Urine Color Colorless (Yellow) Urine Clarity Clear (Clear) Urine pH 5.0 (5.0-9.0) Urine Specific [place] 1.007 (1.001-1.035) Urine Protein Negative (Negative) Urine Ketones Negative (Negative) Urine Blood Negative /uL (Negative) Urine Nitrite Negative (Negative) Urine Bilirubin Negative (Negative) Urine Urobilinogen Normal mg/dL (Negative) Urine Leukocyte Esterase Negative /uL (Negative) Urine RBC 1 /hpf (0 - 4) Urine WBC 1 /hpf (0 - 5) Urine Squamous Epithelial Cells Few /hpf (<5) Urine Bacteria Few /hpf (None Seen) Urine Glucose 3+ mg/dL (Normal) Hemoglobin A1c 5.5 % A1C (<5.7) Legionella pneumophila S1-6 Abs Non reactive (Non Reactive) Blood Gas Specimen Type Arterial Blood Gas Sample Site Right radial Blood Gas Patient Temperature 37.0 Arterial Blood Date Drawn Arterial Blood pH 7.411 (7.350-7.450) Arterial Blood Partial Pressure CO2 28.1 mmHg (32.0-45.0) Arterial Blood Partial Pressure O2 108.4 mmHg (83.0-108.0) Arterial Blood HCO3 17.5 mmol/L (21.0-28.0) Arterial Blood Oxygen Saturation 97.8 % (94.0-98.0) Arterial Blood Base Excess -6.1 mmol/L (-2.0-3.0) Arterial Blood Oxyhemoglobin 96.7 % (94.0-98.0) Arterial Blood Carboxyhemoglobin 0.3 % (0.5-1.5) Arterial Blood Methemoglobin 0.8 % (0.0-1.5) Padilla Test Yes Blood Gas Total Hemoglobin 10.30 g/dL (12.0-16.0) Blood Gas Liter Flow 60.00 Blood Gas Modality High flow FiO2 % 100.0 Test 09/15/24 03:30 09/14/24 23:25 09/14/24 22:27 09/14/24 22:09 Influenza Type A Antigen Negative (Negative) Influenza Type B Antigen Negative (Negative) SARS-CoV-2 Antigen (Rapid) Negative (NEGATIVE) Troponin I High Sensitivity 8 ng/L (</=34) D-Dimer, Quantitative 0.66 mg/L FEU (0.0-0.49) Beta HCG, Quantitative 0.4 mIU/mL (1.5-4.2) POC Glucose 124 mg/dl (70-106) Other Laboratory Tests 09/22/24 05:25 09/21/24 05:42 Brief Hx & Hospital Course: 19-year-old female admitted for acute respiratory failure secondary to multilobar pneumonia. Treated with Rocephin and vancomycin pulmonary consult by Dr. Funes patient had elevated D-dimer 0.66, PE ruled out blood cultures negative respiratory cultures negative patient was in septic shock which has been resolved with IV fluids. Patient feels better stable vital signs on room air and wants to go home. Discharged home on cefdinir as recommended by the entry level project engineer Consults/Reason for consult Pulmonology Dr. Funes Operations or Procedures CT chest CT angiogram Condition at Discharge: Fair Final Diagnosis/Problems List Acute hypoxic respiratory failure secondary to pneumonia improved now on room air Multilobar Pneumonia, unspecified organisms continue Rocephin vancomycin, pulmonary consult by Dr. Funes appreciated Dr. Funes advised to discharge the patient on cefdinir 300 mg p.o. b.i.d. for seven days Generalized weakness Hyperglycemia Elevated D-dimer Sepsis, unspecified organism Shock, resolved Blood cultures negative Respiratory cultures neg Discharge Disposition: Home Discharge Instruct/Medications Diet: Regular Activity: Light activity Follow Up/Referral: Follow up with your primary Dr in one week Return to ER if symptoms worsen Medications: Cefdinir 300 mg p.o. b.i.d. for 7 days Transmitted to [facility] 39 (Time taken for discharge summary 39 minutes) Discharge Statement: "Patient was advised to return to the ER or call 911 if any headaches, dizziness, shortness of breath, chest pain, abdominal pain, bleeding, fevers, or worsening of medical condition. Patient was counseled about treatment plan, medications, possible side effects, patientverbalized understanding. All questions were answered to the best of my ability. This discharge took greater then 30 minutes in planning, reviewing documentation, counseling the patient, and discussing with other team members." ASSESSMENT ASSESSMENT Hospital Course Improved Assessment Acute hypoxic respiratory failure secondary to pneumonia improved now on room air Multilobar Pneumonia, unspecified organisms continue Rocephin vancomycin, pulmonary consult by Dr. Funes appreciated Dr. Funes advised to discharge the patient on cefdinir 300 mg p.o. b.i.d. for seven days Generalized weakness Hyperglycemia Elevated D-dimer Sepsis, unspecified organism Shock, resolved Blood cultures negative Respiratory cultures neg Date of Service: Sep 22, 2024 Billing Provider: DORON ALEXANDER MD Common Visit Codes: 54525-TGU/OBS DISCH DAY >30min DORON ALEXANDER MD Sep 22, 2024 10:11
--- NOTE | 2024-09-22 21:18 | DVHPN2 ---
Progress Note - Dictate Date Seen: Sep 22, 2024 Medical Necessity Reason Pt with a Central, PICC or Fol: No Subjective Patient seen and examined at bedside. Breathing on room air. Overnight events reviewed. vital signs Vital Sign Date Time Temp Pulse Resp B/P (MAP) Pulse Ox O2 Delivery O2 Flow Rate FiO2 09/22/24 12:43 98.9 93 15 96 09/22/24 12:33 114/75 (88) 09/22/24 08:05 Room Air* 0 21 Total Intake and Output 09/21/24 09/21/24 09/22/24 15:00 23:00 07:00 Intake Total 290 ml 1350 ml 1000 ml Balance 290 ml 1350 ml 1000 ml objective Gen.: Patient lying in bed in no apparent distress. On room air Head: Normocephalic, atraumatic. Eyes: EOMI/PERRLA. Ears: Normal hearing. Normal anatomy. Neck/trachea: Trachea midline, supple. Nose: Normal external anatomy. Mouth: Moist mucous membranes. Chest: Decreased air entry bilaterally. No wheezing or rhonchi. Cardiovascular: Positive S1, positive S2. Regular rate and rhythm. Abdomen: Positive bowel sounds in all 4 quadrants. Soft, non-tender, non- distended. : Deferred. Rectal: Deferred. Skin: Warm, dry. Intact. Extremities: 2+ radial pulses bilaterally. No lower extremity edema. Neuro: Awake, alert, oriented x3. No gross motor or sensory deficits. Cranial nerves II through XII intact. Gait not assessed. laboratory and microbiology Laboratory Tests 09/22/24 05:25 09/21/24 05:42 Test 09/21/24 05:42 Range/Units Serum Glucose 87 74-106 mg/dL Assessment/Plan Impression: Acute hypoxic respiratory failure Multifocal pneumonia Sepsis Elevated D-dimer Shock Events: Breathing on room air. No respiratory distress Supplemental O2 PRN Chest x-ray reviewed. Continue antibiotics - complete course Continue bronchodilators Incentive spirometry Antitussive PRN cough. Patient is stable for discharge from the pulmonary standpoint. Labs and imaging reviewed. Rest of plan as noted below. Plan: Supplemental oxygen PRN Titrate to keep O2 sats above 92%. Off pressors, hemodynamically stable. Continue bronchodilators. Continue antibiotics Monitor renal function. Monitor electrolytes. Supplement as necessary. Monitor ins and outs. DVT prophylaxis. Prognosis: Guarded given patient's multiple co-morbidities. Rest of plan per hospitalist and other consultants. A total of 51 minutes of clinical care time was spent reviewing the patient record, examining the patient, making a diagnostic and therapeutic plan, discussing this plan with the medical personnel, following up on diagnostic studies and following the patient for clinical stability excluding any and all procedures. At least 50% of this time was spent in direct, [id number] contact. Thank you, Marty Camacho DNP, for allowing me to participate in this patient's care. Further recommendations will depend on the patient's clinical course. Please do not hesitate to contact me if you have any questions or concerns. This medical document was created using an electronic medical record system with [employer] computerized dictation system. Although these documentations are being carefully reviewed, there may still be some phonetic and typographical changes. The errors are purely typographical, due to imperfection on the software program, and do not reflect any compromise in the patient's medical care. Plan discussed with: Patient, Other (CHINYERE Banuelos) JOHN HUERTA MD Sep 22, 2024 21:18
== END 2024-09-22 13:56 | disposition home or self-care (01) | DRG 871 ==
LOC: ER 22:01 → OVERFLOW 09-15 03:52 → TELE 09-15 23:45 → TELE-EAST 09-16 15:05
PROVIDERS: ADMIT Nurse Practitioner Family; ATTEND Family Medicine
PROC: 5A0935A Assistance with Respiratory Ventilation, Less than 24 Consecutive Hours, High Flow/Velocity Cannula (ICD-10-PCS; principal; 2024-09-15)
DX: A41.9 Sepsis, unspecified organism (principal); J18.9 Pneumonia, unspecified organism; J96.01 Acute respiratory failure with hypoxia; R57.9 Shock, unspecified; D64.9 Anemia, unspecified; Z20.822 Contact with and (suspected) exposure to COVID-19; E87.6 Hypokalemia; R73.9 Hyperglycemia, unspecified; Z79.899 Other long term (current) drug therapy
CPT/HCPCS: 36415; 36600; 71045; 71275; 76604; 80053; 80202; 81001; 82565; 82805; 82962; 83036; 83605; 83735; 84100; 84484; 84702; 85007; 85025; 85027; 85379; 85610; 87040; 87070; 87081; 87086; 87205; 87278; 87426; 87804; 93306; 94640; 96361; 96365; 96366; 96367; 96375; 99291; G0378; J2405; J2543; J3490